=== PATIENT | female | born 1995 | race Two or more races ===

== ENCOUNTER → 2016-12-11 | Outpatient (CLI) | payer BC ==
[2016-12-11 16:35] LABS: Albumin 4.3 g/dL (3.4-5.0); BUN/Creatinine Ratio 16.1; Bilirubin, Total 0.4 mg/dL (0.2-1.0); Calcium 9.3 mg/dL (8.5-10.1); Potassium 3.6 mmol/L (3.5-5.1); Total Protein 8.5 g/dL (6.4-8.2)
[2016-12-11 16:42] LABS: Basophils # (auto) 0 uL; Basophils % (auto) 0.5 % (0.0-2.0); DEFINITIVE VIEW TRANSMISSION; Eosinophils # (auto) 0.1 uL; Eosinophils % (auto) 1.5 % (0.0-7.0); Hematocrit 39.9 % (36.0-46.0); Hemoglobin 13.3 g/dL (12.2-16.2); Lymphocytes # (auto) 2.1 uL; Lymphocytes % (auto) 29.9 % (10.0-50.0); Mean Corpuscular Hgb Conc. 33.4 g/dL (32.0-36.0); Mean Corpuscular Volume 77.9 fL (80.0-100.0); Mean Platelet Volume 9.4 fL (7.4-10.4); Monocytes # (auto) 0.4 uL; Monocytes % (auto) 5.9 % (0.0-12.0); Neutrophils # (auto) 4.5 uL; Neutrophils % (auto) 62.2 % (37.0-80.0); Platelet Count (auto) 293 10^3/uL (140-450); Red Cell Distribution Width 17.4 % (11.6-16.0); White Blood Cell 7.2 10^3/uL (4.4-10.8)
[2016-12-11 16:43] LABS: INR 0.98 (0.9-1.15); Partial Thromboplastin Time 25.6 sec (22.64-33.71); Prothrombin Time 10.7 sec (9.37-12.3)
== END | disposition home or self-care (01) ==
LOC: LAB 15:20
PROVIDERS: ATTEND Internal Medicine
DX: M79.1 Myalgia (principal); R53.83 Other fatigue; M79.81 Nontraumatic hematoma of soft tissue
CPT/HCPCS: 36415; 80053; 80061; 82306; 84443; 85025; 85610; 85652; 85730; 86141; 86225; 86235; 87070

== ENCOUNTER → 2016-12-20 | Outpatient (CLI) | payer BC ==
[2016-12-20 11:12] LABS: Temperature: 23.9 C (20.0-25.0)
== END | disposition home or self-care (01) ==
LOC: LAB 09:18
PROVIDERS: ATTEND Internal Medicine
DX: R53.83 Other fatigue (principal); M79.1 Myalgia; J02.9 Acute pharyngitis, unspecified
CPT/HCPCS: 82306; 82607; 82728; 82746; 86200; 86431

== ENCOUNTER → 2016-12-25 | Outpatient (CLI) | payer BC | END | disposition home or self-care (01) | LOC: LAB 13:40 | PROVIDERS: ATTEND Internal Medicine | DX: D64.9 Anemia, unspecified (principal) | CPT/HCPCS: 86880; 86885 ==

== ENCOUNTER → 2016-12-27 | Outpatient (CLI) | payer BC | END | disposition home or self-care (01) | LOC: LAB 10:01 | PROVIDERS: ATTEND Internal Medicine | DX: R53.83 Other fatigue (principal) | CPT/HCPCS: 86160 ==

== ENCOUNTER → 2017-09-02 | Outpatient (CLI) | payer BC ==
[2017-09-02 11:41] LABS: Basophils # (auto) 0 uL; Basophils % (auto) 0.7 % (0.0-2.0); Eosinophils # (auto) 0.1 uL; Eosinophils % (auto) 1.6 % (0.0-7.0); Hemoglobin 13.4 g/dL (12.2-16.2); Lymphocytes # (auto) 1.6 uL; Mean Corpuscular Hemoglobin 27.7 pg (28.0-32.0); Mean Corpuscular Hgb Conc. 32.7 g/dL (32.0-36.0); Mean Corpuscular Volume 84.9 fL (80.0-100.0); Monocytes # (auto) 0.4 uL; Monocytes % (auto) 6.6 % (0.0-12.0); Neutrophils # (auto) 3.4 uL; Neutrophils % (auto) 62.1 % (37.0-80.0); Platelet Count (auto) 234 10^3/uL (140-450); Red Blood Cells 4.83 10^6/uL (4.0-5.20); Red Cell Distribution Width 15.1 % (11.8-14.3); White Blood Cell 5.5 10^3/uL (4.4-10.8)
== END | disposition home or self-care (01) ==
LOC: LAB 11:22
PROVIDERS: ATTEND Internal Medicine
DX: M06.1 Adult-onset Still's disease (principal); R53.83 Other fatigue
CPT/HCPCS: 36415; 85025; 86431

== ENCOUNTER 2017-09-15 15:46 | Emergency (ER) | payer BC ==
[~2017-09-15] VITALS: Ht 167.6 cm; Wt 65.8 kg
[2017-09-15] MEDS ORDERED: SODIUM CHLORIDE 0.9% 1,000 ML IVB ONE (16:29)
[2017-09-15] MEDS ORDERED: MORPHINE SULFATE 4 MG/ML SYR/VIAL IV ONE (16:30)
[2017-09-15] MEDS ORDERED: ONDANSETRON HCL 4 MG/2 ML VIAL IV ONE (16:30)
[2017-09-15] MEDS ORDERED: IOHEXOL 300 MG/ML 100ML BOTTLE IJ ONE (17:08)
[2017-09-15 17:12] LABS: Urine Bacteria NONE SEEN /hpf (None Seen); Urine Blood Negative /uL (Negative); Urine Mucus FEW (None Seen); Urine Specific Gravity 1.019 (1.001-1.035); Urine WBC 2 /hpf (0 - 5)
[2017-09-15 17:21] LABS: Basophils # (auto) 0 uL; Basophils % (auto) 0.6 % (0.0-2.0); Eosinophils # (auto) 0.2 uL; Eosinophils % (auto) 3.4 % (0.0-7.0); Hematocrit 39.4 % (36.0-46.0); Hemoglobin 12.9 g/dL (12.2-16.2); Lymphocytes # (auto) 1.8 uL; Lymphocytes % (auto) 30.1 % (10.0-50.0); Mean Corpuscular Hemoglobin 28.1 pg (28.0-32.0); Mean Corpuscular Hgb Conc. 32.7 g/dL (32.0-36.0); Mean Corpuscular Volume 85.9 fL (80.0-100.0); Monocytes # (auto) 0.4 uL; Monocytes % (auto) 7.3 % (0.0-12.0); Neutrophils # (auto) 3.5 uL; Neutrophils % (auto) 58.6 % (37.0-80.0); Platelet Count (auto) 249 10^3/uL (140-450); Red Blood Cells 4.59 10^6/uL (4.0-5.20); Red Cell Distribution Width 14.7 % (11.8-14.3); White Blood Cell 5.9 10^3/uL (4.4-10.8)
[2017-09-15 17:37] LABS: Albumin 3.8 g/dL (3.4-5.0); BUN/Creatinine Ratio 14.9; Calcium 8.4 mg/dL (8.5-10.1); Potassium 3.7 mmol/L (3.5-5.1)
[2017-09-15 17:40] LABS: Bilirubin, Total 0.4 mg/dL (0.2-1.0); Total Protein 7.5 g/dL (6.4-8.2)
[2017-09-15] MEDS ORDERED: KETOROLAC TROMETH 30 MG/ML 1ML VIAL IV ONE (19:00)
[2017-09-15] MEDS ORDERED: SODIUM CHLORIDE 0.9% 1,000 ML IV ONE (19:45)
[2017-09-15 20:34] VITALS: BP 115/73
== END 2017-09-15 22:20 | disposition home or self-care (01) ==
LOC: ER 15:46
DX: R10.31 Right lower quadrant pain (principal)
CPT/HCPCS: 36415; 74177; 76856; 80053; 81001; 81025; 83690; 85025; 94761; 96361; 96374; 96375; 99285; J1885; J2270; J2405; J7030; Q9967

== ENCOUNTER → 2018-01-06 | Outpatient (CLI) | payer BC ==
[2018-01-06 11:49] LABS: Basophils # (auto) 0 uL; Basophils % (auto) 0.4 % (0.0-2.0); Eosinophils # (auto) 0.1 uL; Eosinophils % (auto) 2.6 % (0.0-7.0); Hematocrit 38.1 % (36.0-46.0); Hemoglobin 12.6 g/dL (12.2-16.2); Lymphocytes # (auto) 1.6 uL; Lymphocytes % (auto) 29.5 % (10.0-50.0); Mean Corpuscular Hgb Conc. 32.9 g/dL (32.0-36.0); Monocytes # (auto) 0.4 uL; Monocytes % (auto) 6.7 % (0.0-12.0); Neutrophils # (auto) 3.2 uL; Neutrophils % (auto) 60.8 % (37.0-80.0); Nucleated Red Blood Cells % 0.1 %; Platelet Count (auto) 255 10^3/uL (140-450); Red Blood Cells 4.49 10^6/uL (4.0-5.20); Red Cell Distribution Width 16.4 % (11.8-14.3); White Blood Cell 5.3 10^3/uL (4.4-10.8)
[2018-01-06 12:21] LABS: BUN/Creatinine Ratio 33.3; Bilirubin, Total 0.4 mg/dL (0.2-1.0); Calcium 8.7 mg/dL (8.5-10.1); Potassium 3.8 mmol/L (3.5-5.1); Total Protein 7.9 g/dL (6.4-8.2)
[2018-01-08 11:35] LABS: Ferritin 7.4 ng/mL (10-322)
== END | disposition home or self-care (01) ==
LOC: LAB 11:19
PROVIDERS: ATTEND Internal Medicine
DX: D50.0 Iron deficiency anemia secondary to blood loss (chronic) (principal)
CPT/HCPCS: 36415; 80053; 82306; 82607; 82728; 82746; 83540; 84443; 85025

== ENCOUNTER → 2018-02-24 | Outpatient (CLI) | payer BC ==
[2018-02-24 15:13] LABS: Basophils # (auto) 0 uL; Basophils % (auto) 0.4 % (0.0-2.0); Eosinophils # (auto) 0.1 uL; Hematocrit 40.9 % (36.0-46.0); Hemoglobin 13.5 g/dL (12.2-16.2); Lymphocytes # (auto) 1.2 uL; Lymphocytes % (auto) 22.4 % (10.0-50.0); Mean Corpuscular Hemoglobin 27.8 pg (28.0-32.0); Mean Corpuscular Hgb Conc. 32.9 g/dL (32.0-36.0); Mean Corpuscular Volume 84.6 fL (80.0-100.0); Monocytes # (auto) 0.4 uL; Monocytes % (auto) 6.8 % (0.0-12.0); Neutrophils # (auto) 3.6 uL; Neutrophils % (auto) 68.4 % (37.0-80.0); Nucleated Red Blood Cells % 0.1 %; Platelet Count (auto) 230 10^3/uL (140-450); Red Blood Cells 4.83 10^6/uL (4.0-5.20); Red Cell Distribution Width 15.5 % (11.8-14.3); White Blood Cell 5.3 10^3/uL (4.4-10.8)
[2018-02-24 15:40] LABS: Folate (Folic Acid) 8.27 ng/mL (5.38-24)
== END | disposition home or self-care (01) ==
LOC: LAB 14:30
PROVIDERS: ATTEND Internal Medicine
DX: D64.9 Anemia, unspecified (principal); B15.9 Hepatitis A without hepatic coma; E53.8 Deficiency of other specified B group vitamins; R53.83 Other fatigue; L65.9 Nonscarring hair loss, unspecified
CPT/HCPCS: 36415; 82607; 82746; 84436; 84443; 85025; 85652; 86141

== ENCOUNTER → 2018-03-27 | Outpatient (CLI) | payer BC | END | disposition home or self-care (01) | LOC: XYW 09:19 | PROVIDERS: ATTEND Internal Medicine | DX: I34.1 Nonrheumatic mitral (valve) prolapse (principal) | CPT/HCPCS: 93306 ==

== ENCOUNTER → 2018-04-07 | Outpatient (CLI) | payer BC | END | disposition home or self-care (01) | LOC: LAB 15:34 | PROVIDERS: ATTEND Internal Medicine | DX: D51.3 Other dietary vitamin B12 deficiency anemia (principal) | CPT/HCPCS: 82306; 82607 ==

== ENCOUNTER → 2018-10-12 | Outpatient (CLI) | payer BC ==
[2018-10-12 15:15] LABS: Basophils # (auto) 0 uL; Basophils % (auto) 0.5 % (0.0-2.0); Eosinophils # (auto) 0.1 uL; Eosinophils % (auto) 1.4 % (0.0-7.0); Hematocrit 43.4 % (36.0-46.0); Hemoglobin 14.4 g/dL (12.2-16.2); Lymphocytes # (auto) 1.6 uL; Lymphocytes % (auto) 38.9 % (10.0-50.0); Mean Corpuscular Hemoglobin 28.1 pg (28.0-32.0); Mean Corpuscular Hgb Conc. 33.1 g/dL (32.0-36.0); Mean Corpuscular Volume 85.1 fL (80.0-100.0); Monocytes # (auto) 0.3 uL; Monocytes % (auto) 6.3 % (0.0-12.0); Neutrophils # (auto) 2.2 uL; Neutrophils % (auto) 52.9 % (37.0-80.0); Nucleated Red Blood Cells % 0.2 %; Platelet Count (auto) 219 10^3/uL (140-450); Red Cell Distribution Width 15.3 % (11.8-14.3); White Blood Cell 4.1 10^3/uL (4.4-10.8)
[2018-10-12 15:20] LABS: Albumin 4.2 g/dL (3.4-5.0); Calcium 9.2 mg/dL (8.5-10.1); Potassium 3.7 mmol/L (3.5-5.1)
[2018-10-12 15:24] LABS: BUN/Creatinine Ratio 24.6; Bilirubin, Total 0.7 mg/dL (0.2-1.0); Total Protein 8.1 g/dL (6.4-8.2)
== END | disposition home or self-care (01) ==
LOC: LAB 14:01
PROVIDERS: ATTEND Internal Medicine
DX: E86.0 Dehydration (principal); R19.7 Diarrhea, unspecified; R51 Headache
CPT/HCPCS: 36415; 80053; 85025; 87086

== ENCOUNTER 2018-10-15 20:28 | Inpatient (IN) | payer BC ==
[~2018-10-15] VITALS: Ht 160 cm; Wt 62.6 kg
[2018-10-15] MEDS: SODIUM CHLORIDE 0.9% 1,000 ML IV SCH (00:15)
[2018-10-15] MEDS ORDERED: SODIUM CHLORIDE 0.9% 1,000 ML IVB ONE (20:39)
[2018-10-15 21:31] LABS: Basophils # (auto) 0 uL; Basophils % (auto) 0.3 % (0.0-2.0); Eosinophils # (auto) 0.1 uL; Eosinophils % (auto) 1.1 % (0.0-7.0); Hemoglobin 13.4 g/dL (12.2-16.2); Lymphocytes # (auto) 2.3 uL; Lymphocytes % (auto) 46.4 % (10.0-50.0); Mean Corpuscular Hemoglobin 27.7 pg (28.0-32.0); Mean Corpuscular Hgb Conc. 32.8 g/dL (32.0-36.0); Mean Corpuscular Volume 84.5 fL (80.0-100.0); Monocytes # (auto) 0.4 uL; Monocytes % (auto) 8.7 % (0.0-12.0); Neutrophils # (auto) 2.1 uL; Neutrophils % (auto) 43.5 % (37.0-80.0); Nucleated Red Blood Cells % 0.3 %; Platelet Count (auto) 200 10^3/uL (140-450); Red Blood Cells 4.85 10^6/uL (4.0-5.20); White Blood Cell 4.9 10^3/uL (4.4-10.8)
[2018-10-15 21:36] LABS: Alanine Aminotransferase 19 U/L (13-56); Albumin 4.3 g/dL (3.4-5.0); Anion Gap 10 (5-15); Blood Urea Nitrogen 13 mg/dL (7-18); Calcium 8.6 mg/dL (8.5-10.1); Carbon Dioxide 23 mmol/L (21-32); Chloride 109 mmol/L (98-107); Glucose 101 mg/dL (74-106); Magnesium 2.1 mg/dL (1.6-2.6); Sodium 142 mmol/L (136-145)
[2018-10-15] MEDS ORDERED: ONDANSETRON HCL 4 MG/2 ML VIAL ONE (21:36)
[2018-10-15 21:41] LABS: Alkaline Phosphatase 75 U/L (45-117); Aspartate Aminotransferase 12 U/L (15-37); BUN/Creatinine Ratio 18.6; Bilirubin, Total 0.4 mg/dL (0.2-1.0); GFR African American 131 mL/min; GFR Non-African American 108 mL/min; Total Protein 8.1 g/dL (6.4-8.2)
[2018-10-15 21:45] LABS: INR 1.03 (0.9-1.15); Partial Thromboplastin Time 26.2 sec (23.78-33.04)
[2018-10-15] MEDS ORDERED: MORPHINE SULF INJ 2 MG/ML SYRINGE 1ML IV ONE (21:45)
[2018-10-15] MEDS ORDERED: ONDANSETRON HCL 4 MG/2 ML VIAL IV ONE (21:45)
[2018-10-15] MEDS ORDERED: PROMETHAZINE HCL 25 MG/ML 1ML IV ONE (22:15)
[2018-10-15] MEDS ORDERED: LORazepam 2MG/ML-1ML VIAL ONE (22:28)
[2018-10-15] MEDS ORDERED: LORazepam 2MG/ML-1ML VIAL IV ONE (23:00)
[2018-10-16] VITALS (7 sets, daily range): BP systolic 101–123; BP diastolic 53–73
[2018-10-16 00:26] LABS: Lactic Acid w/Reflex 2.2 mmol/L (0.4-2.0)
[2018-10-16] MEDS ORDERED: HYDROcodone-ACET 5/325MG TAB PO PRN (00:45)
[2018-10-16] MEDS ORDERED: ONDANSETRON HCL 4 MG/2 ML VIAL IV PRN (00:45)
[2018-10-16] MEDS ORDERED: CEFTRIAXONE SODIUM 2 GM in D5W 5% 50 ML IV ONE (00:45)
[2018-10-16] MEDS ORDERED: SODIUM CHLORIDE 0.9% 500 ML IV ONE (00:45)
[2018-10-16] MEDS ORDERED: NITROGLYCERIN 0.4 MG SL TAB SL PRN (00:45)
[2018-10-16] MEDS ORDERED: PANTOPRAZOLE 40 MG/10 ML VIAL IV ONE (00:45)
[2018-10-16] MEDS ORDERED: LORazepam 2MG/ML-1ML VIAL IV PRN ×2 (00:45→11:30)
[2018-10-16] MEDS ORDERED: MORPHINE SULF INJ 2 MG/ML SYRINGE 1ML IV PRN (00:45)
[2018-10-16] MEDS ORDERED: LEVOFLOXACIN 750MG 150 ML IV ONE (01:30)
[2018-10-16] MEDS ORDERED: cefTRIAXone 1GM/50ML D5W 100 ML IV ONE (02:02)
[2018-10-16 02:03] LABS: Urine WBC None Seen /hpf (0 - 5)
[2018-10-16 02:13] LABS: Urine Amorphous Crystal FEW /hpf (None Seen); Urine Bacteria FEW /hpf (None Seen); Urine Blood Negative /uL (Negative); Urine Specific Gravity 1.013 (1.001-1.035)
[2018-10-16 02:28] LABS: Alcohol, Urine < 3.0 mg/dL (0-5); Amphetamine Screen, Urine NEGATIVE (NEGATIVE); Barbiturate Scree,Urine NEGATIVE (NEGATIVE); Benzodiazephine Screen, Urine NEGATIVE (NEGATIVE); Cannabinoid Screen, Urine POSITIVE (NEGATIVE); Cocaine Screen, Urine NEGATIVE (NEGATIVE); Opiate Scree,Urine NEGATIVE (NEGATIVE); Phencyclidine Screen, Urine NEGATIVE (NEGATIVE)
--- NOTE | 2018-10-16 02:35 | NUR ---
Telemetry admit from ER JOSE SALOMON admitted to Telemetry unit after report received. Patient unable to comprehend at this time . Family oriented to unit policies regarding patient care and visiting hours. Patient now on continuous telemetry monitoring, tele box # 2 and telemetry reading on arrival to unit is SR 80. Patient placed on bedside oxygen, weighed by bed scale and encouraged to call if they need something. All questions and concerns addressed, family verbalized understanding.
[2018-10-16] MEDS ORDERED: POTASSIUM CHL 20 Meq TABLET PO ONE (02:45)
[2018-10-16] MEDS ORDERED: POTASSIUM CHL 10% (20 MEQ/15ML) 15ml ORAL SOLN PO ONE ×2 (04:30→14:45)
--- NOTE | 2018-10-16 10:01 | NUR ---
Patient is ripping off tele monitor. Attempted to put it back but ripped it off again. Patient refusing to have tele monitor on. Informed [facility] staff.
[2018-10-16] MEDS: PANTOPRAZOLE 40 MG/10 ML VIAL IV SCH (10:37)
[2018-10-16] MEDS ORDERED: LORazepam 2MG/ML-1ML VIAL IV ONE (11:30)
--- NOTE | 2018-10-16 12:00 | NUR ---
Tele box returned to [facility].
--- NOTE | 2018-10-16 12:04 | NUR ---
Called MRI department, left a message regarding MRI and MRV that needs to be done today.
--- NOTE | 2018-10-16 13:00 | NUR ---
Cabrera catheter dc'd Order to discontinue cabrera catheter. Cabrera dc'd with clean technique following deflation of balloon. Patient tolerated well with no complaints of pain. Continue care.
[2018-10-16] MEDS: SODIUM CHLORIDE 0.9% 1,000 ML IV SCH ×2 (18:19→19:45)
--- NOTE | 2018-10-16 19:15 | NUR ---
Closing note Patient resting in bed, no signs of distress observed. Family at bedside.
--- NOTE | 2018-10-16 19:17 | NUR ---
OPENING SHIFT NOTE Received report from day shift RN. Dr Neumann at bedside discussing POC. Patient is in bed, alert and oriented X's 4 with family at bedside. Bed is in lowest/locked position with side rails up X's 2 and call light is within reach of patient. Educated patient to use call light when in need of assistance. Planning to discharge tonight. Will continue to monitor and round hourly/PRN.
--- NOTE | 2018-10-16 19:39 | NUR ---
HENRY AT BEDSIDE Dr Neumann at bedside discussing POC. Henry says patient is clear to be D/C tonight. Will continue to monitor and round hourly/PRN.
--- NOTE | 2018-10-16 20:17 | NUR ---
NURSING NOTE Educated patient and patient's mother that she will be discharged tomorrow when attending physician puts in orders. They verbalized understanding. Will continue to monitor and round hourly/PRN.
[2018-10-16] MEDS ORDERED: LEVOFLOXACIN 500MG 100 ML IV SCH (22:00)
[2018-10-17] MEDS: ACETAMINOPHEN 325 MG TAB PO PRN ×2 (02:56→10:03)
--- NOTE | 2018-10-17 03:00 | NUR ---
NEW IV INSERTED New 20G IV inserted to left forearm with one attempt using clean technique. Patient tolerated it well. 20G IV to right AC was removed with catheter fully intact. Gauze was applied to site.
--- NOTE | 2018-10-17 03:23 | NUR ---
NURSING NOTE Patient reported headache. Tylenol was given at this time. Patient also reported feeling nauseous and vomited about 30ml. Offered patient Zofran. Patient refused medication and said that she did not want it at this time. Gave patient some ice chips. Educated to use call light when in need of my assistance. Patient verbalized understanding. Will continue to monitor and round hourly/PRN.
[2018-10-17 05:05] VITALS: BP 105/62
[2018-10-17 05:38] LABS: Basophils # (auto) 0 uL; Basophils % (auto) 0.2 % (0.0-2.0); Eosinophils # (auto) 0 uL; Eosinophils % (auto) 0.2 % (0.0-7.0); Hematocrit 37.5 % (36.0-46.0); Hemoglobin 12.4 g/dL (12.2-16.2); Lymphocytes % (auto) 18.6 % (10.0-50.0); Mean Corpuscular Hemoglobin 28.1 pg (28.0-32.0); Mean Corpuscular Hgb Conc. 33.1 g/dL (32.0-36.0); Mean Corpuscular Volume 84.8 fL (80.0-100.0); Monocytes # (auto) 0.5 uL; Monocytes % (auto) 8.7 % (0.0-12.0); Neutrophils % (auto) 72.3 % (37.0-80.0); Nucleated Red Blood Cells % 0.1 %; Platelet Count (auto) 196 10^3/uL (140-450); Red Blood Cells 4.42 10^6/uL (4.0-5.20); Red Cell Distribution Width 15.4 % (11.8-14.3); White Blood Cell 5.6 10^3/uL (4.4-10.8)
[2018-10-17] MEDS: SODIUM CHLORIDE 0.9% 1,000 ML IV SCH (05:45)
[2018-10-17 05:57] LABS: Potassium 3.8 mmol/L (3.5-5.1)
[2018-10-17 06:04] LABS: Albumin 4.1 g/dL (3.4-5.0); BUN/Creatinine Ratio 17.7; Bilirubin, Total 0.5 mg/dL (0.2-1.0); Calcium 8.6 mg/dL (8.5-10.1); Total Protein 7.6 g/dL (6.4-8.2)
[2018-10-17 08:51] VITALS: BP 98/54
[2018-10-17] MEDS: PANTOPRAZOLE 40 MG/10 ML VIAL IV SCH (09:55)
[2018-10-17 12:24] VITALS: BP 109/66
--- NOTE | 2018-10-17 13:05 | NUR ---
Pt seen by Dr. Cruz Pt stated she want to go home, per Dr. Cruz pt can go home but instructed to go back to emergency room if symptoms does not improve, pt instructed to follow up with Dr. Neumann for out patient EEG. Mother at bedside and verbalized her daughter will go to her house after discharge.
[2018-10-17 14:26] VITALS: BP 98/54
--- NOTE | 2018-10-17 15:18 | NUR ---
Discharge instructions given as ordered. Encourage to follow up with DR. Ann [facility] IN [address] FIGUEROA IN 1-2 WEEKS, TEL# AND ADDRESS PROVIDED TO THE PT, UNABLE TO MAKE AN APPOINTMENT OFFICE IS CLOSE ON WEEKEND. All questions and concerns addressed. Patient verbalized understanding. Medication reconciliation form completed and copy given to patient. IV removed with catheter intact, pressure dressing applied. Patient taken to vehicle via wheelchair with all personal belongings, accompanied by staff and family member. No distress noted at time of departure.
== END 2018-10-17 15:18 | disposition home or self-care (01) | DRG 101 ==
LOC: EDBD 20:28 → ER 20:30 → TELE 10-16 00:38 → TELE-EAST 10-16 02:32 → EAST 10-16 11:40
PROVIDERS: ADMIT Nurse Practitioner; ATTEND Internal Medicine
DX: R56.9 Unspecified convulsions (principal); F05 Delirium due to known physiological condition; J98.11 Atelectasis; R51 Headache; Z83.3 Family history of diabetes mellitus; R19.7 Diarrhea, unspecified; R45.1 Restlessness and agitation; E87.6 Hypokalemia; F41.9 Anxiety disorder, unspecified; I34.1 Nonrheumatic mitral (valve) prolapse; Z80.51 Family history of malignant neoplasm of kidney; Z82.49 Family history of ischemic heart disease and other diseases of the circulatory system; Z82.5 Family history of asthma and other chronic lower respiratory diseases
CPT/HCPCS: 36415; 70450; 70545; 70551; 71045; 74176; 80053; 80307; 81001; 83605; 83735; 84484; 84702; 85025; 85610; 85730; 87040; 94761; 96361; 96365; 96375; C9113; G0378; J0696; J1956; J2405; J7060

== ENCOUNTER 2018-10-20 20:09 | Inpatient (IN) | payer BC ==
[~2018-10-20] VITALS: Ht 162.6 cm; Wt 65.0 kg
[2018-10-20 21:21] LABS: Basophils # (auto) 0 uL; Basophils % (auto) 0.3 % (0.0-2.0); Eosinophils # (auto) 0.1 uL; Eosinophils % (auto) 2.1 % (0.0-7.0); Hematocrit 42.3 % (36.0-46.0); Lymphocytes # (auto) 2.4 uL; Lymphocytes % (auto) 43.3 % (10.0-50.0); Mean Corpuscular Hemoglobin 28.1 pg (28.0-32.0); Mean Corpuscular Hgb Conc. 33.1 g/dL (32.0-36.0); Mean Corpuscular Volume 84.9 fL (80.0-100.0); Monocytes # (auto) 0.4 uL; Monocytes % (auto) 7.2 % (0.0-12.0); Neutrophils # (auto) 2.6 uL; Neutrophils % (auto) 47.1 % (37.0-80.0); Nucleated Red Blood Cells % 0.1 %; Platelet Count (auto) 250 10^3/uL (140-450); Red Blood Cells 4.98 10^6/uL (4.0-5.20); Red Cell Distribution Width 15.4 % (11.8-14.3); White Blood Cell 5.6 10^3/uL (4.4-10.8)
[2018-10-20] MEDS ORDERED: IOHEXOL 350 MG/ML 100ML IJ ONE (21:25)
[2018-10-20 21:28] LABS: Potassium 3.4 mmol/L (3.5-5.1)
[2018-10-20 21:30] LABS: Albumin 4.1 g/dL (3.4-5.0); Calcium 8.9 mg/dL (8.5-10.1); Magnesium 2.2 mg/dL (1.6-2.6)
[2018-10-20 21:33] LABS: BUN/Creatinine Ratio 18.6
[2018-10-20 21:36] LABS: Bilirubin, Total 0.3 mg/dL (0.2-1.0)
[2018-10-20] MEDS ORDERED: ACETAMINOPHEN 500 MG TAB PO ONE (22:45)
[2018-10-20 23:20] LABS: Urine Bacteria NONE SEEN /hpf (None Seen); Urine Blood Negative /uL (Negative); Urine Specific Gravity 1.048 (1.001-1.035); Urine WBC <1 /hpf (0 - 5)
[2018-10-20 23:30] LABS: Alcohol, Urine < 3.0 mg/dL (0-5); Amphetamine Screen, Urine NEGATIVE (NEGATIVE); Barbiturate Scree,Urine NEGATIVE (NEGATIVE); Benzodiazephine Screen, Urine NEGATIVE (NEGATIVE); Cannabinoid Screen, Urine NEGATIVE (NEGATIVE); Cocaine Screen, Urine NEGATIVE (NEGATIVE); Opiate Scree,Urine NEGATIVE (NEGATIVE); Phencyclidine Screen, Urine NEGATIVE (NEGATIVE)
[2018-10-20] MEDS ORDERED: LORazepam 2MG/ML-1ML VIAL IV ONE (23:45)
[2018-10-21] VITALS (7 sets, daily range): BP systolic 98–152; BP diastolic 60–72
[2018-10-21] MEDS ORDERED: HYDROmorphone HCL 2 MG/ML VL IV ONE (00:15)
[2018-10-21] MEDS ORDERED: ONDANSETRON HCL 4 MG/2 ML VIAL IV PRN (00:45)
[2018-10-21] MEDS ORDERED: POTASSIUM CHL 20 Meq TABLET PO ONE (00:45)
[2018-10-21] MEDS ORDERED: ACETAMINOPHEN 325 MG TAB PO PRN (00:45)
[2018-10-21] MEDS ORDERED: SUMAtriptan SUCCINATE 25 MG TAB PO PRN (01:15)
--- NOTE | 2018-10-21 01:43 | NUR ---
MS admit from ER AIME,JOSE admitted to tele/MS. Patient oriented to KALYAN MIRELES, RN primary RN, unit, room, bed, and unit policies regarding patient care and visiting hours. Patient weighed by bedscale and encouraged to call if they need something. All questions and concerns addressed, patient verbalized understanding. Safety maintained with bed rails upx2, locked and in lowest position with call don within reach. Family at bedside.
--- NOTE | 2018-10-21 07:03 | NUR ---
Closing Shift Note Patient resting in bed, no s/s distress. Endorsed care to day shift RN Danielle.
--- NOTE | 2018-10-21 08:00 | NUR ---
Opening Shift Note Assumed care of patient, asleep but easily woken up by name and tactile touch. Patient appears to be very fatigued. Oriented X4. No S/S of distress/SOB or pain. IV to left antecubital, 20 gauge, patent and saline locked. Mother at bedside, instructed on POC and to call for assist PRN, verbalized understanding. Bed locked, in lowest position, call light within reach, seizure precautions in place, will continue to monitor for changes Q1hr and PRN.
[2018-10-21] MEDS ORDERED: LORazepam 2MG/ML-1ML VIAL IV ONE (11:30)
[2018-10-21] MEDS: FAMOTIDINE 20 MG TAB PO SCH ×2 (11:35→21:43)
--- NOTE | 2018-10-21 11:44 | NUR ---
Nutrition Assessment/consult Notes please see attached link for complete assessment Est. Needs BW [id number] kcal (25-30 kcal/kgBW), 58-69 gms pro (1.0-1.2 gm/kgBW). Will continue to monitor pertinent labs and reassess nutrient need prn. Addendum: 10/21/18 at [address] Amended: Links added.
--- NOTE | 2018-10-21 11:47 | NUR ---
ROUNDS Dr Meyers at bedside for rounds, new orders received and followed through. Patient and family at bedside updated on plan of care, verbalized understanding.
[2018-10-21] MEDS: KETOROLAC TROMETH 30 MG/ML 1ML VIAL IV PRN ×2 (12:43→21:43)
--- NOTE | 2018-10-21 19:18 | NUR ---
Care endorsed to TAVARES Aguilar, night nurse.
--- NOTE | 2018-10-21 22:14 | NUR ---
Opening Shift Note Assumed care of patient from day shift RN Danielle. Patient is awake and alert with no S/S of distress. Pain 3/10 at this time. Patient requests pain medication after shower. Family is at bedside. Instructed on POC and to call for assist PRN, will continue to monitor for changes Q1hr and PRN.
[2018-10-22] MEDS ORDERED: NALBUPHINE HCL 10 MG/1ml INJECTION ONE (05:09)
[2018-10-22 06:00] VITALS: BP 116/69
--- NOTE | 2018-10-22 06:00 | NUR ---
SPOKE WITH SADIA PATIENT CRYING IN PAIN. NO RELIEVE FOR KETOROLAC. NEW ORDER FOR NUBAIN 10 MG IV ONCE. Addendum: 10/22/18 at 0602 by DREW DANIEL RN RN WRONG TIME. RIGHT TIME 0841
[2018-10-22 06:18] LABS: Basophils # (auto) 0 uL; Basophils % (auto) 0.4 % (0.0-2.0); Eosinophils # (auto) 0.1 uL; Eosinophils % (auto) 2.4 % (0.0-7.0); Hematocrit 39.5 % (36.0-46.0); Lymphocytes # (auto) 2.5 uL; Lymphocytes % (auto) 50.6 % (10.0-50.0); Mean Corpuscular Hemoglobin 27.9 pg (28.0-32.0); Mean Corpuscular Volume 84.5 fL (80.0-100.0); Monocytes # (auto) 0.4 uL; Monocytes % (auto) 8.1 % (0.0-12.0); Neutrophils # (auto) 1.9 uL; Neutrophils % (auto) 38.5 % (37.0-80.0); Nucleated Red Blood Cells % 0.1 %; Platelet Count (auto) 238 10^3/uL (140-450); Red Blood Cells 4.67 10^6/uL (4.0-5.20); Red Cell Distribution Width 15.4 % (11.8-14.3); White Blood Cell 4.9 10^3/uL (4.4-10.8)
[2018-10-22 06:22] LABS: BUN/Creatinine Ratio 22.6; Calcium 8.6 mg/dL (8.5-10.1); Potassium 3.9 mmol/L (3.5-5.1)
--- NOTE | 2018-10-22 07:20 | NUR ---
Closing Shift Note Patient resting in bed, with even and unlabored respirations. She denies pain at this time. Bed is low, locked, and all light is in reach. Endorsed care to day shift TAVARES Santos.
[2018-10-22 08:00] VITALS: BP 99/59
--- NOTE | 2018-10-22 08:00 | NUR ---
Opening Shift Note Assumed care of patient, awake, alert and oriented X4. No S/S of distress/SOB or pain. Patient appears to be very fatigued but easily arousable. IV to left antecubital, 20 gauge, patent and saline locked. Instructed on POC and to call for assist PRN, verbalized understanding. Bed locked, in lowest position, call light within reach, will continue to monitor for changes Q1hr and PRN.
[2018-10-22] MEDS: FAMOTIDINE 20 MG TAB PO SCH ×2 (10:00→20:05)
--- NOTE | 2018-10-22 11:30 | NUR ---
ROUNDS Dr Meyers at bedside for rounds, plan of care discussed with patient and her mom at bedside, verbalized understanding.
[2018-10-22 12:30] VITALS: BP 96/49
[2018-10-22 16:57] VITALS: BP 98/57
[2018-10-22] MEDS: KETOROLAC TROMETH 30 MG/ML 1ML VIAL IV PRN ×2 (17:02→23:28)
--- NOTE | 2018-10-22 18:26 | NUR ---
NEUROLOGY Dr Neumann at bedside for rounds, plan discussed with patient and mother at bedside, verbalized understanding.
--- NOTE | 2018-10-22 19:05 | NUR ---
OPENING NOTE Received report from day shift RN. Patient is A&O X's 4 with no s/s of respiratory distress noted. Patient is crying and restless at this time d/t severe headache. Paged hospitalist at this time for pain medication. Waiting call back. Patient's mom is at bedside. Educated patient and patient's mom on POC and to use call light when in need of assistance. They verbalized understanding. Bed is in lowest/locked position with side rails up X's 2. Call light is within reach of patient. Will continue to monitor and round hourly/PRN.
[2018-10-22] MEDS ORDERED: DexAMETHasone INJECTION 10 MG in D5W 5% 50 ML IV SCH (19:28)
--- NOTE | 2018-10-22 19:33 | NUR ---
Care endorsed to TAVARES Barrios, night nurse.
[2018-10-22] MEDS: METOCLOPRAMIDE HCL 10 MG TAB PO SCH (20:05)
[2018-10-22] MEDS: SODIUM CHLORIDE 0.9% 1,000 ML IV SCH (20:07)
[2018-10-22 22:00] VITALS: BP 113/67
[2018-10-22] MEDS ORDERED: HYDROcodone-ACET 10/325MG TAB PO ONE (22:45)
[2018-10-23] MEDS: SODIUM CHLORIDE 0.9% 1,000 ML IV SCH (05:31)
[2018-10-23 05:32] VITALS: BP 112/53
[2018-10-23] MEDS: METOCLOPRAMIDE HCL 10 MG TAB PO SCH (06:00)
--- NOTE | 2018-10-23 07:45 | NUR ---
Opening Shift Note Assumed care of patient, awake and alert. No S/S of distress/SOB or pain. Instructed on POC and to call for assist PRN, will continue to monitor for changes Q1hr and PRN.
[2018-10-23 08:00] VITALS: BP 103/67
--- NOTE | 2018-10-23 08:10 | NUR ---
Family members at bedside.
[2018-10-23 11:59] VITALS: BP 103/67
--- NOTE | 2018-10-23 12:40 | NUR ---
Discharge instructions given as ordered. Encourage to follow up with PMD as instructed. All questions and concerns addressed. Patient verbalized understanding. Medication reconciliation form completed and copy given to patient. IV removed with catheter intact and pressure dressing applied. Patient taken to vehicle via wheelchair with all personal belongings, accompanied by staff and family member. No distress noted at time of departure.
== END 2018-10-23 12:40 | disposition home or self-care (01) | DRG 103 ==
LOC: ER 20:11 → EEVIPCON 20:11 → OVERFLOW 10-21 00:35 → EAST 10-21 01:45
PROVIDERS: ADMIT Nurse Practitioner; ATTEND Internal Medicine
DX: G43.909 Migraine, unspecified, not intractable, without status migrainosus (principal); R47.81 Slurred speech; E87.6 Hypokalemia; G40.909 Epilepsy, unspecified, not intractable, without status epilepticus; Z80.51 Family history of malignant neoplasm of kidney; Z82.49 Family history of ischemic heart disease and other diseases of the circulatory system; Z82.5 Family history of asthma and other chronic lower respiratory diseases; Z83.3 Family history of diabetes mellitus
CPT/HCPCS: 36415; 70470; 70551; 72125; 80048; 80053; 80307; 81001; 83605; 83735; 84702; 85025; 87081; G0378; J1100; J1885; J2405; J7060

== ENCOUNTER 2018-11-18 09:51 | Inpatient (IN) | payer BC ==
[~2018-11-18] VITALS: Ht 162.6 cm; Wt 60.0 kg
--- NOTE | 2018-11-18 10:30 | NUR ---
MS direct admit JOSE SALOMON admitted to MS as direct admit under Dr Meyers. Patient oriented to АННА RIVAS, primary RN, unit, room, bed, and unit policies regarding patient care and visiting hours. Patient weighed by bedscale and encouraged to call if they need something. All questions and concerns addressed, patient verbalized understanding. Note:
[2018-11-18] MEDS ORDERED: KETOROLAC TROMETH 30 MG/ML 1ML VIAL IV PRN (11:30)
[2018-11-18] MEDS ORDERED: ONDANSETRON HCL 4 MG/2 ML VIAL IV PRN (11:30)
--- NOTE | 2018-11-18 11:30 | NUR ---
MD: Dr Meyers at bedside. Per , Dr Delaney is schedule to take patient to surgery at 0730 on 11/19/18.
[2018-11-18 12:00] VITALS: BP 112/79
[2018-11-18] MEDS: D5W/SOD CHL 0.45%/KCL 20MEQ 1,000 ML IV SCH ×2 (12:36→23:55)
[2018-11-18 12:52] LABS: Basophils # (auto) 0 uL; Basophils % (auto) 0.4 % (0.0-2.0); Eosinophils # (auto) 0.1 uL; Eosinophils % (auto) 1.6 % (0.0-7.0); Hematocrit 36.3 % (36.0-46.0); Hemoglobin 12.1 g/dL (12.2-16.2); Lymphocytes # (auto) 1.7 uL; Lymphocytes % (auto) 31.9 % (10.0-50.0); Mean Corpuscular Hemoglobin 27.9 pg (28.0-32.0); Mean Corpuscular Hgb Conc. 33.2 g/dL (32.0-36.0); Mean Corpuscular Volume 84.1 fL (80.0-100.0); Monocytes # (auto) 0.4 uL; Monocytes % (auto) 7.3 % (0.0-12.0); Neutrophils # (auto) 3.2 uL; Neutrophils % (auto) 58.8 % (37.0-80.0); Nucleated Red Blood Cells % 0.1 %; Platelet Count (auto) 267 10^3/uL (140-450); Red Blood Cells 4.32 10^6/uL (4.0-5.20); Red Cell Distribution Width 14.8 % (11.8-14.3); White Blood Cell 5.5 10^3/uL (4.4-10.8)
[2018-11-18 12:55] LABS: Prothrombin Time 10.7 sec (9.27-12.13)
[2018-11-18 13:10] LABS: Potassium 3.7 mmol/L (3.5-5.1)
[2018-11-18 13:15] LABS: Albumin 3.7 g/dL (3.4-5.0); BUN/Creatinine Ratio 16.1
[2018-11-18 13:16] LABS: Bilirubin, Total 0.3 mg/dL (0.2-1.0); Total Protein 7.5 g/dL (6.4-8.2)
[2018-11-18 16:34] LABS: Urine Bacteria FEW /hpf (None Seen); Urine Blood Negative /uL (Negative); Urine Specific Gravity 1.007 (1.001-1.035); Urine WBC 12 /hpf (0 - 5)
--- NOTE | 2018-11-18 19:23 | NUR ---
CLOSING SHIFT NOTE: Report given to NOC Marcus CHAPIN. Endorsed care of patient.
--- NOTE | 2018-11-18 20:00 | NUR ---
OPENING NOTE RECEIVED REPORT FROM DAYSHIFT RN. ASSUMING ROLE OF CARE OF PATIENT AT THIS TIME. PATIENT SHOWING NO SIGN OF DISTRESS, SHORTNESS OF BREATH, AND PATIENT DENIES ANY PAIN AT THIS TIME. PATIENT EDUCATED ON PLAN OF CARE FOR THE NIGHT AND PATIENT VERBALIZED UNDERSTANDING. BED LOWERED, CALL LIGHT WITHIN REACH, AND PATIENT WILL BE ROUNDED ON EVERY HOUR AND NEEDED.
--- NOTE | 2018-11-18 21:40 | NUR ---
MD CORNEJO AT BEDSIDE
--- NOTE | 2018-11-18 21:48 | NUR ---
MD [facility] CONTACTED MD [facility] LISTED PRIMARY PHYSICIAN. OFFICE WAS CONTACTED TO REQUEST SLEEPING MEDICATION OR ANXIETY MEDICATION FOR PATIENT PATIENT IS HAVING SLIGHT ANXIETY AND CANNOT SEEM TO FALL ASLEEP. WILL AWAIT CALL BACKS OR ORDERS.
[2018-11-18 22:00] VITALS: BP 113/63
--- NOTE | 2018-11-18 22:17 | NUR ---
MD [facility] CALLED BACK STATED THAT THEY ARE NOT FOLLOWING THE PATIENT AT THIS TIME AND TO CALL HOSPITALIST. WILL CONTACT HOSPITALIST FOR ORDERS.
--- NOTE | 2018-11-18 22:28 | NUR ---
MD CORNEJO CALLED MD CORNEJO REQUESTED TO HAVE THE GALLBLADDER US PLACED IN THE CHART PRIOR TO PROCEDURE. UNABLE TO OBTAIN REPORT TEST WAS NOT DONE AT THE HOSPITAL. REQUESTED IF POSSIBLE FROM RADIOLOGY AND THEY WERE UNABLE. CONTACTED DR CORNEJO TO SEE IF THEY WOULD LIKE TO PLACE ORDERS TO HAVE A NEW GALLBLADDER US TO BE DONE TONIGHT. WILL AWAIT CALL BACK OR ORDERS.
[2018-11-18] MEDS ORDERED: TEMAZEPAM 15 MG CAP PO ONE (22:45)
--- NOTE | 2018-11-18 23:53 | NUR ---
GALLBLADDER US DONE US DONE AT BEDSIDE. PATIENT TOLERATED WELL. PATIENT SIGNED CONSENTS AT THIS TIME WELL. PATIENT REFUSED SLEEPING PILL AT THIS TIME WELL AND STATED THAT THEY "DO NOT WANT TO BE GROGGY IN THE MORNING". PILL RETURNED. WILL CONTINUE TO MONITOR.
[2018-11-19 05:21] VITALS: BP 111/63
--- NOTE | 2018-11-19 06:36 | NUR ---
PATIENT TAKEN DOWN TO PREOP RECEIVED CALL FROM ROMEL TO TAKE PATIENT DOWN FOR PREOP. PATIENT'S BELONGINGS LEFT IN ROOM AND PATIENT TAKEN DOWN TO PREOP.
[2018-11-19] MEDS ORDERED: ceFAZolin 1GM/50ML 50 ML IV ONE (06:47)
[2018-11-19] MEDS ORDERED: MEPERIDINE HCL (25 MG/ML) 1ML VIAL ONE (07:47)
[2018-11-19] MEDS ORDERED: fentaNYL CITRATE 100 MCG/2 ML VL ONE (07:47)
[2018-11-19] MEDS ORDERED: MIDAZOLAM HCL 1MG/1ML-2 ML VIAL ONE (07:47)
[2018-11-19] MEDS ORDERED: PROPOFOL 10 MG/ML 20 ML IV ONE (07:51)
[2018-11-19] MEDS ORDERED: DexAMETHasone SOD PHOS 10MG/1ML VIAL INJ ONE (07:51)
[2018-11-19] MEDS ORDERED: ONDANSETRON HCL 4 MG/2 ML VIAL ONE (08:04)
[2018-11-19] MEDS ORDERED: BUPIVACAINE 0.25% INJ 50ML VIAL ONE (08:12)
[2018-11-19] MEDS ORDERED: LIDOCAINE W/ EPINEPHRINE 1 % INJ 30ML ONE (08:12)
[2018-11-19] MEDS ORDERED: LIDOCAINE 1% HCL (LOCAL ANESTH.) INJ 20ML MDV ONE (08:15)
[2018-11-19] MEDS ORDERED: KETOROLAC TROMETH 30 MG/ML 1ML VIAL ONE (08:45)
[2018-11-19] MEDS ORDERED: NEOSTIGMINE 1 MG/ML INJ (10mg/10ML VIAL) ONE (08:46)
[2018-11-19] MEDS ORDERED: GLYCOPYRROLATE 0.2 MG/ML 1ML VIAL ONE (08:46)
[2018-11-19] MEDS: HYDROmorphone HCL 2 MG/ML VL IV PRN ×7 (09:27→21:34)
[2018-11-19] MEDS ORDERED: HYDROmorphone HCL 2 MG/ML VL ONE (09:27)
[2018-11-19] MEDS ORDERED: ONDANSETRON HCL 4 MG/2 ML VIAL IV ONE (09:30)
[2018-11-19] MEDS ORDERED: KETOROLAC TROMETH 30 MG/ML 1ML VIAL IV ONE (09:30)
[2018-11-19] MEDS ORDERED: MIDAZOLAM HCL 1MG/1ML-2 ML VIAL IV PRN (09:30)
[2018-11-19] MEDS ORDERED: ePHEDrine SULFATE 50 MG/ML AMP IV PRN (09:30)
[2018-11-19] MEDS ORDERED: LABETALOL HCL 5 MG/ML 4ML SYRINGE IV PRN (09:30)
[2018-11-19] MEDS ORDERED: PANTOPRAZOLE 40 MG TAB PO SCH (10:00)
[2018-11-19 10:30] VITALS: BP 117/73
--- NOTE | 2018-11-19 10:30 | NUR ---
pt back from surgery, a/o x4, no s/s of distress noted, v/s wnl, abdominal incision x4 clean dry and intact, family at bedside, call light within reach, asked to call if needed, will continue to monitor.
--- NOTE | 2018-11-19 11:11 | NUR ---
Dr Meyers at nurses station and made aware pt is requesting Benadryl.
--- NOTE | 2018-11-19 11:29 | NUR ---
Patient refused Protonix requesting Mylanta instead, will continue to monitor and inform Dr Meyers.
--- NOTE | 2018-11-19 11:45 | NUR ---
Dr Meyers at bedside. Per Dr Meyers will review patient's medications and update. Will continue to monitor. Patient A&OX4, abdominal binder placed. No s/s of distress noted and will continue to monitor.
[2018-11-19] MEDS ORDERED: FAMOTIDINE (10MG/ML) 2ML VL IV ONE (12:00)
[2018-11-19] MEDS ORDERED: diphenhdrAMINE HCL 50 MG/1 ML VL IV PRN (12:00)
[2018-11-19] MEDS: PROMETHAZINE HCL 25 MG/ML 1ML IV PRN ×2 (12:41→18:43)
[2018-11-19 13:29] VITALS: BP 111/69
[2018-11-19] MEDS: D5W/SOD CHL 0.45%/KCL 20MEQ 1,000 ML IV SCH (16:13)
[2018-11-19 17:24] VITALS: BP 114/62
--- NOTE | 2018-11-19 18:54 | NUR ---
Patient care and report handed off to Marcus CHAPIN.
[2018-11-19] MEDS: KETOROLAC TROMETH 30 MG/ML 1ML VIAL IV PRN (19:54)
--- NOTE | 2018-11-19 20:00 | NUR ---
OPENING NOTE RECEIVED REPORT FROM DAYSHIFT RN. ASSUMING ROLE OF CARE OF PATIENT AT THIS TIME. PATIENT SHOWING NO SIGN OF DISTRESS, SHORTNESS OF BREATH, AND PATIENT STATES PAIN IS 10/10 FROM ABDOMEN. PATIENT WILL BE MEDICATED PER PAIN PROTOCOL AVAILABLE. INCISIONS ARE CLEAN DRY AND INTACT. PATIENT EDUCATED ON PLAN OF CARE FOR THE NIGHT AND PATIENT VERBALIZED UNDERSTANDING. BED LOWERED, CALL LIGHT WITHIN REACH, AND PATIENT WILL BE ROUNDED ON EVERY HOUR AND NEEDED.
[2018-11-19] MEDS: FAMOTIDINE (10MG/ML) 2ML VL IV SCH (21:34)
[2018-11-19 22:00] VITALS: BP 104/55
[2018-11-20] MEDS: HYDROmorphone HCL 2 MG/ML VL IV PRN ×4 (01:56→20:17)
[2018-11-20] MEDS: D5W/SOD CHL 0.45%/KCL 20MEQ 1,000 ML IV SCH ×2 (03:30→20:28)
[2018-11-20 05:44] VITALS: BP 102/56
[2018-11-20 06:56] LABS: Basophils # (auto) 0.1 uL; Basophils % (auto) 1.5 % (0.0-2.0); Eosinophils # (auto) 0 uL; Eosinophils % (auto) 0.3 % (0.0-7.0); Hematocrit 36.4 % (36.0-46.0); Lymphocytes # (auto) 2.1 uL; Lymphocytes % (auto) 25.7 % (10.0-50.0); Mean Corpuscular Hemoglobin 27.6 pg (28.0-32.0); Mean Corpuscular Volume 83.7 fL (80.0-100.0); Monocytes # (auto) 0.6 uL; Monocytes % (auto) 7.7 % (0.0-12.0); Neutrophils # (auto) 5.3 uL; Neutrophils % (auto) 64.8 % (37.0-80.0); Nucleated Red Blood Cells % 0.1 %; Platelet Count (auto) 284 10^3/uL (140-450); Red Blood Cells 4.34 10^6/uL (4.0-5.20); Red Cell Distribution Width 14.6 % (11.8-14.3); White Blood Cell 8.1 10^3/uL (4.4-10.8)
[2018-11-20 07:12] LABS: Albumin 3.6 g/dL (3.4-5.0); Potassium 3.8 mmol/L (3.5-5.1)
[2018-11-20 07:14] LABS: BUN/Creatinine Ratio 9.5
[2018-11-20 07:17] LABS: Bilirubin, Total 0.5 mg/dL (0.2-1.0); Total Protein 7.2 g/dL (6.4-8.2)
[2018-11-20] MEDS: PROMETHAZINE HCL 25 MG/ML 1ML IV PRN ×3 (07:34→20:17)
[2018-11-20 07:45] VITALS: BP 107/65
[2018-11-20] MEDS ORDERED: ROCURONIUM 10MG/ML 10ML VIAL IV ONE (08:10)
[2018-11-20] MEDS: FAMOTIDINE (10MG/ML) 2ML VL IV SCH ×2 (09:30→21:29)
[2018-11-20 11:55] VITALS: BP 123/78
[2018-11-20 16:27] VITALS: BP 99/49
[2018-11-20] MEDS: KETOROLAC TROMETH 30 MG/ML 1ML VIAL IV PRN (21:35)
[2018-11-20 22:49] VITALS: BP 110/65
[2018-11-21] MEDS: HYDROmorphone HCL 2 MG/ML VL IV PRN ×2 (03:48→09:53)
[2018-11-21] MEDS: PROMETHAZINE HCL 25 MG/ML 1ML IV PRN ×2 (03:49→09:54)
--- NOTE | 2018-11-21 04:25 | NUR ---
PICC DRESSING CHANGE PATIENT C/O OF BLISTER FORMING UNDER PICC DRESSING, FLUID FILLED BLISTERS NOTICED ON THE OUTER EDGE ON THE DRESSING. CHANGED PICC DRESSING USING ASEPTIC TECHNIQUE. TEGADERM USED THE COVER TO PREVENT SKIN IRRITATION. WILL KEEP MONITORING.
[2018-11-21 04:49] VITALS: BP 97/57
[2018-11-21 05:43] LABS: Basophils # (auto) 0 uL; Basophils % (auto) 0.5 % (0.0-2.0); Eosinophils # (auto) 0 uL; Eosinophils % (auto) 1.3 % (0.0-7.0); Hematocrit 32.5 % (36.0-46.0); Hemoglobin 10.7 g/dL (12.2-16.2); Lymphocytes # (auto) 1.8 uL; Lymphocytes % (auto) 50.7 % (10.0-50.0); Mean Corpuscular Hemoglobin 27.6 pg (28.0-32.0); Mean Corpuscular Hgb Conc. 32.8 g/dL (32.0-36.0); Monocytes # (auto) 0.3 uL; Monocytes % (auto) 9.9 % (0.0-12.0); Neutrophils # (auto) 1.3 uL; Neutrophils % (auto) 37.6 % (37.0-80.0); Platelet Count (auto) 211 10^3/uL (140-450); Red Blood Cells 3.87 10^6/uL (4.0-5.20); Red Cell Distribution Width 15.1 % (11.8-14.3); White Blood Cell 3.5 10^3/uL (4.4-10.8)
[2018-11-21 06:01] LABS: Albumin 3.1 g/dL (3.4-5.0); BUN/Creatinine Ratio 13.6; Calcium 8.2 mg/dL (8.5-10.1); Potassium 3.8 mmol/L (3.5-5.1)
[2018-11-21 06:04] LABS: Bilirubin, Total 0.3 mg/dL (0.2-1.0); Total Protein 6.2 g/dL (6.4-8.2)
[2018-11-21] MEDS: D5W/SOD CHL 0.45%/KCL 20MEQ 1,000 ML IV SCH (06:10)
[2018-11-21 08:38] VITALS: BP 97/62
[2018-11-21] MEDS: FAMOTIDINE (10MG/ML) 2ML VL IV SCH (09:54)
[2018-11-21 13:10] VITALS: BP 106/66
== END 2018-11-21 14:30 | disposition home or self-care (01) | DRG 419 ==
LOC: EAST 10:06
PROVIDERS: ADMIT Internal Medicine; ATTEND Internal Medicine
PROC: 0FT44ZZ Resection of Gallbladder, Percutaneous Endoscopic Approach (ICD-10-PCS; 2018-11-19)
PROC: BF43ZZZ Ultrasonography of Gallbladder and Bile Ducts (ICD-10-PCS; principal; 2018-11-19 07:39)
DX: K80.12 Calculus of gallbladder with acute and chronic cholecystitis without obstruction (principal); K66.0 Peritoneal adhesions (postprocedural) (postinfection); Z86.61 Personal history of infections of the central nervous system; Z88.5 Allergy status to narcotic agent; Z88.6 Allergy status to analgesic agent; Z91.018 Allergy to other foods
CPT/HCPCS: 36415; 71045; 76705; 80053; 81001; 83690; 84702; 85025; 85610; 85730; 86850; 86900; 86901; 87081; G0378; J0690; J1100; J1885; J2001; J2250; J2405; J2704; J3490

== ENCOUNTER → 2018-12-02 | Outpatient (CLI) | payer BC | END | disposition home or self-care (01) | LOC: LAB 15:09 | PROVIDERS: ATTEND Internal Medicine | DX: D51.3 Other dietary vitamin B12 deficiency anemia (principal) | CPT/HCPCS: 82607 ==

== ENCOUNTER → 2018-12-29 | Outpatient (CLI) | payer BC ==
[2018-12-29 16:17] LABS: Albumin 4.2 g/dL (3.4-5.0); Calcium 9.1 mg/dL (8.5-10.1); Potassium 3.5 mmol/L (3.5-5.1)
[2018-12-29 16:19] LABS: BUN/Creatinine Ratio 20.3
[2018-12-29 16:21] LABS: Bilirubin, Total 0.4 mg/dL (0.2-1.0)
[2018-12-29 16:46] LABS: Basophils # (auto) 0 uL; Eosinophils # (auto) 0.1 uL; Hemoglobin 12.3 g/dL (12.2-16.2); Lymphocytes # (auto) 1.7 uL; Lymphocytes % (auto) 35.9 % (10.0-50.0); Monocytes # (auto) 0.3 uL; Neutrophils # (auto) 2.6 uL; Nucleated Red Blood Cells % 0.2 %
[2018-12-29 16:48] LABS: Basophils % (auto) 0.6 % (0.0-2.0); Eosinophils % (auto) 1.6 % (0.0-7.0); Mean Corpuscular Hemoglobin 26.6 pg (28.0-32.0); Mean Corpuscular Hgb Conc. 32.4 g/dL (32.0-36.0); Monocytes % (auto) 5.9 % (0.0-12.0); Platelet Count (auto) 279 10^3/uL (140-450); Red Blood Cells 4.64 10^6/uL (4.0-5.20); Red Cell Distribution Width 14.6 % (11.8-14.3); White Blood Cell 4.6 10^3/uL (4.4-10.8)
== END | disposition home or self-care (01) ==
LOC: LAB 15:19
PROVIDERS: ATTEND Internal Medicine
DX: D51.0 Vitamin B12 deficiency anemia due to intrinsic factor deficiency (principal); R47.81 Slurred speech; R47.89 Other speech disturbances
CPT/HCPCS: 36415; 80053; 82306; 85025; 85652

== ENCOUNTER → 2019-04-01 | Outpatient (CLI) | payer BC ==
[2019-04-01 12:53] LABS: BUN/Creatinine Ratio 30.8; Bilirubin, Total 0.3 mg/dL (0.2-1.0); Total Protein 7.7 g/dL (6.4-8.2)
== END | disposition home or self-care (01) ==
LOC: LAB 11:37
PROVIDERS: ATTEND Internal Medicine
DX: R51 Headache (principal)
CPT/HCPCS: 36415; 80053; 83520; 86256

== ENCOUNTER → 2019-04-15 | Outpatient (CLI) | payer BC ==
[2019-04-15 15:56] LABS: BUN/Creatinine Ratio 27.8; Potassium 3.4 mmol/L (3.5-5.1)
[2019-04-15 16:15] LABS: Basophils # (auto) 0 uL; Eosinophils # (auto) 0.1 uL; Eosinophils % (auto) 1.3 % (0.0-7.0); Hemoglobin 12.8 g/dL (12.2-16.2); Lymphocytes # (auto) 1.9 uL; Monocytes # (auto) 0.3 uL; Neutrophils # (auto) 2.4 uL; White Blood Cell 4.6 10^3/uL (4.4-10.8)
[2019-04-15 16:17] LABS: Basophils % (auto) 0.5 % (0.0-2.0); Hematocrit 38.7 % (36.0-46.0); Lymphocytes % (auto) 40.7 % (10.0-50.0); Mean Corpuscular Hemoglobin 25.9 pg (28.0-32.0); Mean Corpuscular Volume 78.4 fL (80.0-100.0); Monocytes % (auto) 6.3 % (0.0-12.0); Neutrophils % (auto) 51.2 % (37.0-80.0); Nucleated Red Blood Cells % 0.2 %; Platelet Count (auto) 247 10^3/uL (140-450); Red Blood Cells 4.94 10^6/uL (4.0-5.20); Red Cell Distribution Width 18.4 % (11.8-14.3)
== END | disposition home or self-care (01) ==
LOC: LAB 14:59
PROVIDERS: ATTEND Internal Medicine
DX: D51.0 Vitamin B12 deficiency anemia due to intrinsic factor deficiency (principal); E55.9 Vitamin D deficiency, unspecified
CPT/HCPCS: 36415; 80048; 82306; 82607; 82746; 85025

== ENCOUNTER → 2019-04-21 | Outpatient (CLI) | payer BC | END | disposition home or self-care (01) | LOC: LAB 15:11 | PROVIDERS: ATTEND Internal Medicine | DX: Z02.0 Encounter for examination for admission to educational institution (principal) | CPT/HCPCS: 86735; 86762; 86765; 86787 ==

== ENCOUNTER → 2019-06-21 | Outpatient (CLI) | payer BC | END | disposition home or self-care (01) | LOC: LAB 13:22 | PROVIDERS: ATTEND Internal Medicine | DX: B19.10 Unspecified viral hepatitis B without hepatic coma (principal); R76.0 Raised antibody titer; B26.9 Mumps without complication | CPT/HCPCS: 36415; 86706; 86735; 86762 ==

== ENCOUNTER → 2020-09-07 | Outpatient (CLI) | payer OTHER ==
[2020-09-07 15:19] LABS: Basophils # (auto) 0 10 ^3/uL (0-0.2); Basophils % (auto) 0.8 % (0.0-2.0); Eosinophils # (auto) 0 10 ^3/uL (0-0.8); Eosinophils % (auto) 1.1 % (0.0-7.0); Hematocrit 39.1 % (36.0-46.0); Hemoglobin 13.5 g/dL (12.2-16.2); Lymphocytes # (auto) 1.8 10 ^3/uL (0.4-5.4); Lymphocytes % (auto) 38.4 % (10.0-50.0); Mean Corpuscular Hemoglobin 30.6 pg (28.0-32.0); Mean Corpuscular Hgb Conc. 34.4 g/dL (32.0-36.0); Mean Corpuscular Volume 88.9 fL (80.0-100.0); Monocytes # (auto) 0.3 10 ^3/uL (0-1.3); Monocytes % (auto) 6.2 % (0.0-12.0); Neutrophils # (auto) 2.5 10 ^3/uL (1.6-8.6); Neutrophils % (auto) 53.5 % (37.0-80.0); Nucleated Red Blood Cells % 0.1 %; Platelet Count (auto) 204 10^3/uL (140-450); Red Cell Distribution Width 14.2 % (11.8-14.3); White Blood Cell 4.7 10^3/uL (4.4-10.8)
[2020-09-07 15:49] LABS: Albumin 4.1 g/dL (3.4-5.0); Calcium 9.1 mg/dL (8.5-10.1); Potassium 3.8 mmol/L (3.5-5.1)
[2020-09-07 15:55] LABS: Bilirubin, Total 0.6 mg/dL (0.2-1.0)
[2020-09-07 15:56] LABS: BUN/Creatinine Ratio 22.2
== END | disposition home or self-care (01) ==
LOC: LAB 15:08
PROVIDERS: ATTEND Physician Assistant
DX: I34.1 Nonrheumatic mitral (valve) prolapse (principal); E05.90 Thyrotoxicosis, unspecified without thyrotoxic crisis or storm; G43.001 Migraine without aura, not intractable, with status migrainosus; Z86.61 Personal history of infections of the central nervous system
CPT/HCPCS: 36415; 80053; 80061; 85025

== ENCOUNTER → 2020-11-29 | Outpatient (CLI) | payer OTHER | END | disposition home or self-care (01) | LOC: LAB 09:19 | PROVIDERS: ATTEND Nurse Practitioner Family | DX: Z02.0 Encounter for examination for admission to educational institution (principal); G43.011 Migraine without aura, intractable, with status migrainosus; M54.2 Cervicalgia | CPT/HCPCS: 82607 ==

== ENCOUNTER → 2021-07-26 | Outpatient (CLI) | payer MEDICAID ==
[2021-07-26 12:16] LABS: Basophils # (auto) 0 10 ^3/uL (0-0.2); Basophils % (auto) 0.4 % (0.0-2.0); Eosinophils # (auto) 0.1 10 ^3/uL (0-0.8); Eosinophils % (auto) 1.7 % (0.0-7.0); Hematocrit 43.3 % (36.0-46.0); Hemoglobin 14.7 g/dL (12.2-16.2); Lymphocytes # (auto) 1.6 10 ^3/uL (0.4-5.4); Lymphocytes % (auto) 29.4 % (10.0-50.0); Mean Corpuscular Hemoglobin 30.4 pg (28.0-32.0); Mean Corpuscular Volume 89.5 fL (80.0-100.0); Monocytes # (auto) 0.3 10 ^3/uL (0-1.3); Monocytes % (auto) 6.1 % (0.0-12.0); Neutrophils # (auto) 3.4 10 ^3/uL (1.6-8.6); Neutrophils % (auto) 62.4 % (37.0-80.0); Nucleated Red Blood Cells % 0.1 %; Red Blood Cells 4.83 10^6/uL (4.0-5.20); Red Cell Distribution Width 13.2 % (11.8-14.3); White Blood Cell 5.4 10^3/uL (4.4-10.8)
[2021-07-26 12:41] LABS: Potassium 3.9 mmol/L (3.5-5.1)
[2021-07-26 12:45] LABS: Albumin 4.2 g/dL (3.4-5.0); BUN/Creatinine Ratio 26.2; Calcium 9.3 mg/dL (8.5-10.1)
[2021-07-26 12:47] LABS: Free T4 (Free Thyroxine) 1.2 ng/dL (0.89-1.76)
[2021-07-26 12:54] LABS: Bilirubin, Total 0.6 mg/dL (0.2-1.0); Total Protein 8.2 g/dL (6.4-8.2)
== END | disposition home or self-care (01) ==
LOC: LAB 10:21
PROVIDERS: ATTEND Nurse Practitioner Family
DX: E05.90 Thyrotoxicosis, unspecified without thyrotoxic crisis or storm (principal); G43.011 Migraine without aura, intractable, with status migrainosus; R53.83 Other fatigue
CPT/HCPCS: 36415; 80053; 82607; 84439; 84443; 85025

== ENCOUNTER → 2022-04-11 | Outpatient (CLI) | payer MEDICAID ==
[2022-04-11 11:33] LABS: Basophils # (auto) 0 10 ^3/uL (0-0.2); Basophils % (auto) 0.7 % (0.0-2.0); Eosinophils # (auto) 0.2 10 ^3/uL (0-0.8); Eosinophils % (auto) 3.3 % (0.0-7.0); Hematocrit 44.3 % (36.0-46.0); Hemoglobin 14.8 g/dL (12.2-16.2); Lymphocytes # (auto) 1.8 10 ^3/uL (0.4-5.4); Lymphocytes % (auto) 34.5 % (10.0-50.0); Mean Corpuscular Hemoglobin 29.1 pg (28.0-32.0); Mean Corpuscular Hgb Conc. 33.3 g/dL (32.0-36.0); Mean Corpuscular Volume 87.4 fL (80.0-100.0); Monocytes # (auto) 0.4 10 ^3/uL (0-1.3); Monocytes % (auto) 7.6 % (0.0-12.0); Neutrophils # (auto) 2.9 10 ^3/uL (1.6-8.6); Neutrophils % (auto) 53.9 % (37.0-80.0); Nucleated Red Blood Cells % 0.1 %; Red Blood Cells 5.07 10^6/uL (4.0-5.20); Red Cell Distribution Width 13.2 % (11.8-14.3); White Blood Cell 5.3 10^3/uL (4.4-10.8)
[2022-04-11 11:51] LABS: Cholesterol 155 mg/dL (< 200); HDL Cholesterol 64 mg/dL (40-59); LDL Cholesterol 86 mg/dL (< 100); Triglycerides 66 mg/dL (< 150)
== END | disposition home or self-care (01) ==
LOC: LAB 11:20
PROVIDERS: ATTEND Internal Medicine
DX: E05.90 Thyrotoxicosis, unspecified without thyrotoxic crisis or storm (principal); R53.83 Other fatigue; E55.9 Vitamin D deficiency, unspecified
CPT/HCPCS: 36415; 80061; 82607; 83036; 84443; 85025; 85652

== ENCOUNTER → 2022-05-09 | Outpatient (CLI) | payer MEDICAID | END | disposition home or self-care (01) | LOC: LAB 14:59 | PROVIDERS: ATTEND Internal Medicine | DX: R73.03 Prediabetes (principal) | CPT/HCPCS: 36415; 83036 ==

== ENCOUNTER → 2022-08-09 | Outpatient (CLI) | payer MEDICAID | END | disposition home or self-care (01) | LOC: LAB 08:49 | PROVIDERS: ATTEND Internal Medicine | DX: R73.03 Prediabetes (principal); E55.9 Vitamin D deficiency, unspecified; R63.5 Abnormal weight gain | CPT/HCPCS: 36415; 82533; 82607; 84443 ==

== ENCOUNTER → 2023-03-21 | Outpatient (CLI) | payer MEDICAID | END | disposition home or self-care (01) | LOC: LAB 14:59 | PROVIDERS: ATTEND Obstetrics & Gynecology | DX: D06.0 Carcinoma in situ of endocervix (principal); R85.610 Atypical squamous cells of undetermined significance on cytologic smear of anus (ASC-US); R87.810 Cervical high risk human papillomavirus (HPV) DNA test positive ==

== ENCOUNTER 2023-04-25 07:33 | Day surgery (SDC) | payer MEDICAID ==
[~2023-04-25] VITALS: Ht 162.6 cm; Wt 68.9 kg
[~2023-04-25 07:33] MED LIST: SEMA7TAB2 PO
[2023-04-25] MEDS ORDERED: ONDANSETRON HCL 4 MG/2 ML VIAL ONE ×2 (07:54→09:34)
[2023-04-25] MEDS ORDERED: DexAMETHasone SOD PHOS 10MG/1ML VIAL INJ ONE (07:54)
[2023-04-25] MEDS ORDERED: PROPOFOL 10 MG/ML 20 ML IV ONE ×2 (07:54→08:56)
[2023-04-25] MEDS ORDERED: GLYCOPYRROLATE 0.2 MG/ML 1ML VIAL ONE (07:54)
[2023-04-25] MEDS ORDERED: LIDOCAINE 1% (LOCAL ANESTH.) PF 5ml SDV ONE (07:55)
[2023-04-25] MEDS ORDERED: fentaNYL CITRATE 100 MCG/2 ML VL ONE (07:57)
[2023-04-25] MEDS ORDERED: ZOFR4T PO (08:19)
[2023-04-25] MEDS ORDERED: HYDR-4902 PO (08:19)
[2023-04-25] MEDS ORDERED: KETOROLAC TROMETH 60MG/2ML VIAL ONE (08:37)
[2023-04-25] MEDS ORDERED: ceFAZolin 1GM/50ML 100 ML IV ONE (08:39)
[2023-04-25] MEDS ORDERED: diphenhdrAMINE HCL 50 MG/1 ML VL ONE (08:40)
[2023-04-25] MEDS ORDERED: IODINE STRONG 5% SOLN 14ML ONE (08:41)
[2023-04-25] MEDS ORDERED: FERRIC SUBSULFATE TOPICAL SOLN 30 ML BTL ONE (08:41)
[2023-04-25] MEDS ORDERED: LIDOCAINE W/ EPINEPHRINE 1% 20ML VIAL ONE (09:00)
[2023-04-25 09:12] VITALS: TEMP 97.4; O2SAT 100
[2023-04-25] MEDS ORDERED: LACTATED RINGER'S 1,000 ML IV SCH (09:15)
[2023-04-25] MEDS ORDERED: ONDANSETRON HCL 4 MG/2 ML VIAL IV PRN ×2 (09:15→09:45)
[2023-04-25] MEDS ORDERED: ePHEDrine SULFATE 50 MG/ML AMP IV PRN (09:45)
[2023-04-25] MEDS ORDERED: FLUMAZENIL 0.1 MG/ML INJ 10ML MDV IV PRN (09:45)
[2023-04-25] MEDS ORDERED: PROMETHAZINE HCL 25 MG/ML 1ML IM PRN (09:45)
[2023-04-25] MEDS ORDERED: oxyCODONE HCL 5MG TAB PO PRN (09:45)
[2023-04-25] MEDS ORDERED: LABETALOL HCL 5 MG/ML 4ML SYRINGE IV PRN (09:45)
[2023-04-25] MEDS ORDERED: NALOXONE HCL 0.4 MG/ML VIAL IV PRN (09:45)
[2023-04-25] MEDS ORDERED: hydrALAZINE HCL 20 MG/ML VL IV PRN (09:45)
[2023-04-25] MEDS ORDERED: HYDROmorphone HCL 2 MG/ML VL/or syr IV PRN (09:45)
[2023-04-25] MEDS ORDERED: ACETAMINOPHEN IV 1000 MG/100ML (10MG/ML) IV ONE (09:45)
[2023-04-25] MEDS ORDERED: fentaNYL CITRATE 100 MCG/2 ML VL IV PRN (09:45)
[2023-04-25] MEDS ORDERED: ACETAMINOPHEN IV 100 ML IV ONE (09:52)
[2023-04-25 10:45] VITALS: BP 113/77; PULSE 55; RESP 12; O2SAT 96
== END 2023-04-25 10:55 | disposition home or self-care (01) ==
LOC: SUR 07:33
PROVIDERS: ATTEND Obstetrics & Gynecology
DX: R87.613 High grade squamous intraepithelial lesion on cytologic smear of cervix (HGSIL) (principal)
CPT/HCPCS: 57522; J0131; J0690; J1100; J1200; J1885; J2405; J2704; J3010

== ENCOUNTER → 2024-04-26 | Outpatient (CLI) | payer BC ==
[~2024-04-26] MED LIST changes: +HYDR-4902 PO; +ZOFR4T PO
[2024-04-26 12:57] LABS: Basophils # (auto) 0 10 ^3/uL (0-0.2); Basophils % (auto) 0.5 % (0.0-2.0); Eosinophils # (auto) 0.2 10 ^3/uL (0-0.8); Eosinophils % (auto) 1.9 % (0.0-7.0); Hematocrit 39.5 % (36.0-46.0); Hemoglobin 13.8 g/dL (12.2-16.2); Lymphocytes # (auto) 2.2 10 ^3/uL (0.4-5.4); Lymphocytes % (auto) 24.1 % (10.0-50.0); Mean Corpuscular Hemoglobin 30.9 pg (28.0-32.0); Mean Corpuscular Hgb Conc. 34.8 g/dL (32.0-36.0); Mean Corpuscular Volume 88.7 fL (80.0-100.0); Monocytes # (auto) 0.6 10 ^3/uL (0-1.3); Monocytes % (auto) 6.1 % (0.0-12.0); Neutrophils # (auto) 6.2 10 ^3/uL (1.6-8.6); Neutrophils % (auto) 67.4 % (37.0-80.0); Platelet Count (auto) 233 10^3/uL (140-450); Red Blood Cells 4.45 10^6/uL (4.0-5.20); White Blood Cell 9.2 10^3/uL (4.4-10.8)
[2024-04-26 13:10] LABS: Urine Bacteria FEW /hpf (None Seen); Urine Blood Negative /uL (Negative); Urine Clarity Clear (Clear); Urine Color Light-Yellow (Yellow); Urine Protein, UAD Negative (Negative); Urine Specific Gravity 1.018 (1.001-1.035); Urine Urobilinogen Normal (Negative); Urine WBC 1 /hpf (0 - 5)
[2024-04-26 13:43] LABS: Alanine Aminotransferase 18 U/L (7-40); Albumin 4.3 g/dL (3.2-4.8); Alkaline Phosphatase 63 U/L (46-116); Anion Gap 6 (5-15); Aspartate Aminotransferase 13 U/L (13-40); BUN/Creatinine Ratio 16.4 (10.0-20.0); Bilirubin, Total 0.4 mg/dL (0.2-1.0); Blood Urea Nitrogen 10 mg/dL (9-23); Calcium 9.7 mg/dL (8.7-10.4); Carbon Dioxide 21 mmol/L (20-31); Chloride 109 mmol/L (98-107); Glucose 112 mg/dL (74-106); Potassium 3.6 mmol/L (3.5-5.1); Sodium 136 mmol/L (136-145)
[2024-04-27 08:06] LABS: RPR Non Reactive (Non Reactive)
[2024-04-28 10:07] LABS: Treponema Pallidum Ab LC Non Reactive (Non Reactive)
== END | disposition home or self-care (01) ==
LOC: LAB 12:31
PROVIDERS: ATTEND Nurse Practitioner Women's Health
DX: Z34.80 Encounter for supervision of other normal pregnancy, unspecified trimester (principal)
CPT/HCPCS: 36415; 80053; 81001; 84144; 84702; 85025; 86592; 86703; 86762; 86780; 86850; 86900; 86901; 87086; 87340

== ENCOUNTER → 2024-05-27 | Outpatient (CLI) | payer BC ==
[2024-05-27 08:52] LABS: Basophils # (auto) 0 10 ^3/uL (0-0.2); Basophils % (auto) 0.5 % (0.0-2.0); Eosinophils # (auto) 0.1 10 ^3/uL (0-0.8); Eosinophils % (auto) 1.1 % (0.0-7.0); Hematocrit 41.1 % (36.0-46.0); Lymphocytes # (auto) 1.8 10 ^3/uL (0.4-5.4); Lymphocytes % (auto) 22.3 % (10.0-50.0); Mean Corpuscular Hemoglobin 30.2 pg (28.0-32.0); Mean Corpuscular Volume 88.6 fL (80.0-100.0); Monocytes # (auto) 0.5 10 ^3/uL (0-1.3); Monocytes % (auto) 5.8 % (0.0-12.0); Neutrophils # (auto) 5.8 10 ^3/uL (1.6-8.6); Neutrophils % (auto) 70.3 % (37.0-80.0); Nucleated Red Blood Cells % 0.1 %; Platelet Count (auto) 246 10^3/uL (140-450); Red Blood Cells 4.63 10^6/uL (4.0-5.20); Red Cell Distribution Width 14.1 % (11.8-14.3); White Blood Cell 8.3 10^3/uL (4.4-10.8)
[2024-05-27 09:08] LABS: Alanine Aminotransferase 55 U/L (7-40); Albumin 4.4 g/dL (3.2-4.8); Alkaline Phosphatase 67 U/L (46-116); Anion Gap 9 (5-15); Aspartate Aminotransferase 28 U/L (13-40); BUN/Creatinine Ratio 15.1 (10.0-20.0); Bilirubin, Total 0.4 mg/dL (0.2-1.0); Blood Urea Nitrogen 8 mg/dL (9-23); Calcium 9.9 mg/dL (8.7-10.4); Carbon Dioxide 23 mmol/L (20-31); Chloride 108 mmol/L (98-107); Glucose 98 mg/dL (74-106); Potassium 3.4 mmol/L (3.5-5.1); Sodium 140 mmol/L (136-145); Total Protein 7.2 g/dL (5.7-8.2)
[2024-05-27 13:37] LABS: Ferritin 8.5 ng/mL (10-291); Folate (Folic Acid) > 24.00 ng/mL (>5.38)
[2024-05-27 13:38] LABS: Free T4 (Free Thyroxine) 1.06 ng/dL (0.89-1.76)
[2024-05-27 13:54] LABS: % Iron Saturation 22.1 % (15-50)
[2024-05-28 08:06] LABS: T3 Uptake 13 % (24-39); Thyroid Peroxidase (TPO) Ab 15 IU/mL (0-34); Thyroxine (T4) 11.2 ug/dL (4.5-12.0)
[2024-05-28 11:07] LABS: Thyroglobulin Antibody <1.0 IU/mL (0.0-0.9)
[2024-05-29 04:06] LABS: Chlamydia Trachomatis, NAA Negative (Negative); Neisseria gonorrhoeae, NAA Negative (Negative)
== END | disposition home or self-care (01) ==
LOC: LAB 08:13
PROVIDERS: ATTEND Obstetrics & Gynecology
DX: Z34.80 Encounter for supervision of other normal pregnancy, unspecified trimester (principal); Z3A.00 Weeks of gestation of pregnancy not specified
CPT/HCPCS: 36415; 80053; 82306; 82607; 82728; 82746; 82951; 83036; 83540; 83550; 84436; 84439; 84443; 84479; 84480; 85025; 86376; 86780; 86800; 86850; 86900; 86901; 87086

== ENCOUNTER → 2024-06-17 | Outpatient (CLI) | payer BC | END | disposition home or self-care (01) | LOC: LAB 10:14 | PROVIDERS: ATTEND Nurse Practitioner Women's Health | DX: O24.419 Gestational diabetes mellitus in pregnancy, unspecified control (principal); Z3A.00 Weeks of gestation of pregnancy not specified | CPT/HCPCS: 82951 ==

== ENCOUNTER → 2024-09-03 | Outpatient (CLI) | payer BC ==
[2024-09-03 08:22] LABS: Alanine Aminotransferase 17 U/L (7-40); Albumin 4.3 g/dL (3.2-4.8); Alkaline Phosphatase 114 U/L (46-116); Anion Gap 11 (5-15); BUN/Creatinine Ratio 18.8 (10.0-20.0); Bilirubin, Total 0.6 mg/dL (0.2-1.0); Calcium 9.7 mg/dL (8.7-10.4); Carbon Dioxide 21 mmol/L (20-31); Chloride 106 mmol/L (98-107); Glucose 90 mg/dL (74-106); Potassium 3.6 mmol/L (3.5-5.1); Sodium 138 mmol/L (136-145); Total Protein 6.7 g/dL (5.7-8.2)
[2024-09-03 08:34] LABS: Aspartate Aminotransferase < 8 U/L (13-40); Blood Urea Nitrogen 9 mg/dL (9-23)
[2024-09-03 08:37] LABS: Basophils # (auto) 0 10 ^3/uL (0-0.2); Basophils % (auto) 0.3 % (0.0-2.0); Eosinophils # (auto) 0.1 10 ^3/uL (0-0.8); Hematocrit 41.9 % (36.0-46.0); Hemoglobin 13.7 g/dL (12.2-16.2); Lymphocytes # (auto) 1.8 10 ^3/uL (0.4-5.4); Lymphocytes % (auto) 19.2 % (10.0-50.0); Mean Corpuscular Hemoglobin 30.3 pg (28.0-32.0); Mean Corpuscular Hgb Conc. 32.8 g/dL (32.0-36.0); Mean Corpuscular Volume 92.6 fL (80.0-100.0); Monocytes # (auto) 0.5 10 ^3/uL (0-1.3); Monocytes % (auto) 5.1 % (0.0-12.0); Neutrophils # (auto) 6.9 10 ^3/uL (1.6-8.6); Neutrophils % (auto) 74.4 % (37.0-80.0); Nucleated Red Blood Cells % 0.1 %; Platelet Count (auto) 193 10^3/uL (140-450); Red Blood Cells 4.53 10^6/uL (4.0-5.20); Red Cell Distribution Width 15.9 % (11.8-14.3); White Blood Cell 9.3 10^3/uL (4.4-10.8)
[2024-09-04 22:06] LABS: Chlamydia Trachomatis, NAA Negative (Negative); Neisseria gonorrhoeae, NAA Negative (Negative)
== END | disposition home or self-care (01) ==
LOC: LAB 07:32
PROVIDERS: ATTEND Nurse Practitioner Women's Health
DX: Z34.00 Encounter for supervision of normal first pregnancy, unspecified trimester (principal); Z3A.00 Weeks of gestation of pregnancy not specified
CPT/HCPCS: 36415; 80053; 82951; 82952; 83036; 85025; 86850; 86900; 86901

== ENCOUNTER 2024-09-21 10:15 | Observation (INO) | payer BC ==
[2024-09-21] MEDS ORDERED: PREN-96 PO (11:44)
--- NOTE | 2024-09-21 12:18 | DVH ---
Procedure: US BIOPHYSICAL PROFILE 09/21/2024 10:41 AM Indication: GDMA1 Comparison: None Technique: Sonogram of gravid uterus utilizing grayscale and color techniques. FINDINGS: Single living intrauterine gestation. Presentation: Breech Placenta: Posterior heart rate: 136 bpm MP: 17.9 cm, DVP: 5.2 cm Maternal cervix: Not visualized Biophysical Profile: breathing score: 2 movement score: 2 tone: 2 Quantitative MP score: 2 Total score: 8/8 IMPRESSION: 1. Single living as above. 2. Biophysical profile score: 8/8.
--- NOTE | 2024-09-21 13:28 | DVHDS2 ---
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 Chaney consulted, agrees with POC. Other Interventions Other Interventions [place] [address] Ph: [phone] DIAGNOSTIC IMAGING Diagnostic Imaging Report : [id number] Signed PATIENT: JOSE SALOMON ACCT: [id number] UNIT: [id number] : 1995 LOC: [facility] ROOM / BED: [facility] / A AGE / SEX: 29 / F ADM STATUS: ADM IN SERVICE 1025 ORDERING PHYSICIAN: LIBAN VIEYRA CNM PROCEDURE(s): BPP - BIOPHYSICAL PROFILE REASON: GDMA1 ORDER NUMBER(s): [id number], ACCESSION NUMBER(s): [id number] Procedure: US BIOPHYSICAL PROFILE 09/21/2024 10:41 AM Indication: GDMA1 Comparison: None Technique: Sonogram of gravid uterus utilizing grayscale and color techniques. FINDINGS: Single living intrauterine gestation. Presentation: Breech Placenta: Posterior heart rate: 136 bpm MP: 17.9 cm, DVP: 5.2 cm Maternal cervix: Not visualized Biophysical Profile: breathing score: 2 movement score: 2 tone: 2 Quantitative MP score: 2 Total score: 8/8 IMPRESSION: 1. Single living as above. 2. Biophysical profile score: 8/8. ATED BY: QI HU MD DICTATED DATE/TIME: 09/21/241214 SIGNED BY: QI HU MD SIGNED DATE/TIME: 09/21/241214 CC: Condition on Discharge: Stable Disposition: Home Discharge Instructions: Diet: Regular Activity: No Restrictions, As Tolerated Medications: see med list Follow Up Care: Specialist: f/u in 1wk Discharge Statement: "Patient was advised to return to the ER or call 911 if any headaches, dizziness, shortness of breath, chest pain, abdominal pain, bleeding, fevers, or worsening of medical condition. Patient was counseled about treatment plan, medications, possible side effects, patientverbalized understanding. All questions were answered to the best of my ability. This discharge took greater then 30 minutes in planning, reviewing documentation, counseling the patient, and discussing with other team members." Visit Coding OBGYN Date of Service: Sep 21, 2024 Billing Provider: LIBAN VIEYRA CNM SCIENCE TUTOR Common Visit Codes: 24861-ELZOLMO OBS CARE (HIGH) SCIENCE TUTOR Procedure Codes: 38238-72- NON-STRESS TEST LIBAN VIEYRA CNM Sep 21, 2024 13:28
== END 2024-09-21 11:54 | disposition home or self-care (01) ==
LOC: UNDOADMOB 10:15 → LDRP 10:15 → UNDODISOB 11:54
PROVIDERS: ADMIT Obstetrics & Gynecology; ATTEND Obstetrics & Gynecology
DX: O24.419 Gestational diabetes mellitus in pregnancy, unspecified control (principal); O62.9 Abnormality of forces of labor, unspecified; Z3A.32 32 weeks gestation of pregnancy; Z88.5 Allergy status to narcotic agent; Z91.040 Latex allergy status; Z79.899 Other long term (current) drug therapy
CPT/HCPCS: 76819; 81002; 82948; 82962; 94760; G0378

== ENCOUNTER 2024-09-28 06:33 | Observation (INO) | payer BC ==
[~2024-09-28 06:33] MED LIST changes: +PREN-96 PO
--- NOTE | 2024-09-28 11:49 | DVH ---
CLINICAL HISTORY: Gestational diabetes. COMPARISON: US BIOPHYSICAL PROFILE on DOS: 09/21/24 TECHNIQUE: biophysical profile was performed. Transabdominal sonographic images of the fetus we re obtained. FINDINGS: The fetus is in cephalic position. heart rate measures 126 BPM. Amniotic fluid index measures 15.6 cm. The placenta is right lateral in position. BPP profile is an overall score of 8/8, with 2/2 points for breathing, with at least one episode of breathing over a 30 second duration during a 30 minute observation, 2/2 points for m ovements, with 3 or more discrete body or limb movements, 2/2 points for tone, with one or more episodes of extremity extension with return to flexion, or opening and closing of hand, and 2/ 2 points for amniotic fluid, with at least 1 pocket of amniotic fluid that measures 2 cm in 2 perpend icular planes. IMPRESSION: BPP score of 8/8.
--- NOTE | 2024-09-28 15:46 | DVHDS2 ---
Physician Discharge Progress N Final Diagnosis: GDM Operations or Procedures: Operations or Procedures NST/BPP/MP Commentary: Commentary PATIENT: JOSE SALOMON ACCT: [id number] UNIT: [id number] : 1995 LOC: [facility] ROOM / BED: TRI[facility]1 / A AGE / SEX: 29 / F ADM STATUS: ADM IN SERVICE 1102 ORDERING PHYSICIAN: JESÚS PERSAUD DO PROCEDURE(s): BPP - BIOPHYSICAL PROFILE REASON: GDMA2 ORDER NUMBER(s): [id number], ACCESSION NUMBER(s): [id number] CLINICAL HISTORY: Gestational diabetes. COMPARISON: US BIOPHYSICAL PROFILE on DOS: 09/21/24 TECHNIQUE: biophysical profile was performed. Transabdominal sonographic images of the fetus were obtained. FINDINGS: The fetus is in cephalic position. heart rate measures 126 BPM. Amniotic fluid index measures 15.6 cm. The placenta is right lateral in position. BPP profile is an overall score of 8/8, with 2/2 points for breathing, with at least one episode of breathing over a 30 second duration during a 30 minute observation, 2/2 points for movements, with 3 or more discrete body or limb movements, 2/2 points for tone, with one or more episodes of extremity extension with return to flexion, or opening and closing of hand, and 2/2 points for amniotic fluid, with at least 1 pocket of amniotic fluid that measures 2 cm in 2 perpendicular planes. IMPRESSION: BPP score of 8/8. Condition on Discharge: Stable Disposition: Home Discharge Instructions: Diet: Consistent carbohydrate Activity: Light activity Follow Up/Referral: 3-4 days Medications: na Follow Up Care: Discharge Statement: "Patient was advised to return to the ER or call 911 if any headaches, dizzines s, shortness of breath, chest pain, abdominal pain, bleeding, fevers, or worsening of medical condition. Patient was counseled about treatment plan, medications, possible side effects, patientverbalized understanding. All questions were answered to the best of my ability. This discharge took greater then 30 minutes in planning, reviewing documentation, counseling the patient, and discussing with other team members." Visit Coding OBGYN Date of Service: Sep 28, 2024 Billing Provider: JESÚS PERSAUD DO SECTION MAINTAINER Common Visit Codes: 13204-WHB/OBS SAME DATE (MOD) SECTION MAINTAINER Procedure Codes: 48395-19- NON-STRESS TEST JESÚS PERSAUD DO Sep 28, 2024 15:46
== END 2024-09-28 12:10 | disposition home or self-care (01) ==
LOC: UNDOADMOB 10:55 → LDRP 10:55
PROVIDERS: ADMIT Obstetrics & Gynecology; ATTEND Obstetrics & Gynecology
DX: O24.419 Gestational diabetes mellitus in pregnancy, unspecified control (principal); Z98.890 Other specified postprocedural states; Z79.899 Other long term (current) drug therapy; Z3A.33 33 weeks gestation of pregnancy
CPT/HCPCS: 76818; 81002; 82948; 82962; 94760; G0378; 76819

== ENCOUNTER 2024-10-01 08:50 | Observation (INO) | payer BC ==
--- NOTE | 2024-10-01 10:58 | DVH ---
BIOPHYSICAL PROFILE HISTORY: gdma1 TECHNIQUE: Multiple transabdominal real-time grayscale sonographic images through the gravid uterus of the fetus with duplex Doppler color flow and M-mode spectral analysis FINDINGS: BIOPHYSICAL PROFILE: breathing score: 2 movement score: 2 tone score: 2 Quantitative MP score: 2 (MP: 8 Cm.) Total score: 8 The cervix was not seen. Single live fetus in cephalic presentation. heart rate 143 beats per minute. IMPRESSION: Biophysical profile score: 8/8
--- NOTE | 2024-10-01 13:47 | DVHDS2 ---
Physician Discharge Progress N Final Diagnosis: gdm 33wks Operations or Procedures: Operations or Procedures nst 33 wks,sono Condition on Discharge: Good Disposition: Home Discharge Instructions: Diet: Consistent carbohydrate Activity: No Restrictions, As Tolerated Medications: na Follow Up Care: Specialist: 1w Discharge Statement: "Patient was advised to return to the ER or call 911 if any headaches, dizziness, shortness of breath, chest pain, abdominal pain, bleeding, fevers, or worsening of medical condition. Patient was counseled about treatment plan, medications, possible side effects, patientverbalized understanding. All questions were answered to the best of my ability. This discharge took greater then 30 minutes in planning, reviewing docu mentation, counseling the patient, and discussing with other team members." Visit Coding OBGYN Date of Service: Oct 01, 2024 Billing Provider: KRYSTAL ELDER DO DESIGN ANALYST Common Visit Codes: 44152-LLKMUYA INP/OBS CARE (HIGH) DESIGN ANALYST Procedure Codes: 43450-22- NON-STRESS TEST KRYSTAL ELDER DO Oct 01, 2024 13:47
== END 2024-10-01 10:48 | disposition home or self-care (01) ==
LOC: LDRP 08:50
PROVIDERS: ADMIT Obstetrics & Gynecology; ATTEND Obstetrics & Gynecology
DX: O24.419 Gestational diabetes mellitus in pregnancy, unspecified control (principal); Z3A.33 33 weeks gestation of pregnancy; Z79.899 Other long term (current) drug therapy
CPT/HCPCS: 59025; 76819; 81002; 82948; 82962; 94760; G0378

== ENCOUNTER 2024-10-05 07:03 | Observation (INO) | payer BC ==
--- NOTE | 2024-10-05 11:33 | DVH ---
BIOPHYSICAL PROFILE HISTORY: GDMA1 TECHNIQUE: Multiple transabdominal real-time grayscale sonographic images through the gravid uterus of the fetus with duplex Doppler color flow and M-mode spectral analysis FINDINGS: BIOPHYSICAL PROFILE: breathing score: 2 movement score: 2 tone score: 2 Quantitative MP score: 2 (MP: 12 Cm.) Total score: 8 The cervix was not seen Single live fetus in cephalic presentation. heart rate 135 beats per minute. Grade II posterior placenta without previa or abruption IMPRESSION: Biophysical profile score: 8/8
--- NOTE | 2024-10-05 23:10 | DVHDS2 ---
Physician Discharge Progress N Final Diagnosis: testing for GDM, A1 Operations or Procedures: Operations or Procedures 29yo IUP@34.1wks VSS NST reactive FKC/PTL precautions reviewed Dr. Chaney consulted, agrees with POC. Other Interventions Other Interventions [address] [address] Ph: [phone] DIAGNOSTIC IMAGING Diagnostic Imaging Report : [id number] Signed PATIENT: JOSE SALOMON ACCT: [id number] UNIT: [id number] : 1995 LOC: [facility] ROOM / BED: [facility] / A AGE / SEX: 29 / F ADM STATUS: ADM IN SERVICE 1050 ORDERING PHYSICIAN: LIBAN VIEYRA CNM PROCEDURE(s): BPP - BIOPHYSICAL PROFILE REASON: GDMA1 ORDER NUMBER(s): [id number], ACCESSION NUMBER(s): [id number] BIOPHYSICAL PROFILE HISTORY: GDMA1 TECHNIQUE: Multiple transabdominal real-time grayscale sonographic images through the gravid uterus of the fetus with duplex Doppler color flow and M-mode spectral analysis FINDINGS: BIOPHYSICAL PROFILE: breathing score: 2 movement score: 2 tone score: 2 Quantitative MP score: 2 (MP: 12 Cm.) Total score: 8 The cervix was not seen Single live fetus in cephalic presentation. heart rate 135 beats per minute. Grade II posterior placenta without previa or abruption IMPRESSION: Biophysical profile score: 8/8 ATED BY: NAEEM ALANIS MD DICTATED DATE/TIME: 10/05/24 1130 SIGNED BY: NAEEM ALANIS MD SIGNED DATE/TIME: 10/05/24 1130 CC: Condition on Discharge: Stable Disposition: Home Discharge Instructions: Diet: Consistent carbohydrate Activity: No Restrictions, As Tolerated Medications: see med list Follow Up Care: Specialist: f/u in 1 week Discharge Statement: "Patient was advised to return to the ER or call 911 if any headaches, dizziness, shortness of breath, chest pain, abdominal pain, bleeding, fevers, or worsening of medical condition. Patient was counseled about treatment plan, medications, possible side effects, patientverbalized understanding. All questions were answered to the best of my ability. This discharge took greater then 30 minutes in planning, reviewing do cumentation, counseling the patient, and discussing with other team members." Visit Coding OBGYN Date of Service: Oct 05, 2024 Billing Provider: LIBAN VIEYRA CNM ASSOCIATE SALES Common Visit Codes: 00449-MJJTCFU OBS CARE (HIGH) ASSOCIATE SALES Procedure Codes: 18617-26- NON-STRESS TEST LIBAN VIEYRA CNM Oct 05, 2024 23:10
== END 2024-10-05 11:52 | disposition home or self-care (01) ==
LOC: LDRP 10:38 → UNDOADMOB 10:38 → LDRP 10:51 → UNDODISOB 11:52
PROVIDERS: ADMIT Obstetrics & Gynecology; ATTEND Obstetrics & Gynecology
DX: O09.33 Supervision of pregnancy with insufficient antenatal care, third trimester (principal); O24.419 Gestational diabetes mellitus in pregnancy, unspecified control; Z98.890 Other specified postprocedural states; Z79.899 Other long term (current) drug therapy; Z3A.34 34 weeks gestation of pregnancy
CPT/HCPCS: 76818; 81002; 82948; 82962; 94760; G0378; 76819

== ENCOUNTER 2024-10-12 07:17 | Observation (INO) | payer BC ==
--- NOTE | 2024-10-12 10:28 | DVH ---
Procedure: US BIOPHYSICAL PROFILE 10/12/2024 10:03 AM Indication: GDMA1 Comparison: US BIOPHYSICAL PROFILE on DOS: 10/05/24, US BIOPHYSICAL PROFILE on DOS: 10/01/24, US BIOPHYS ICAL PROFILE on DOS: 09/28/24 Technique: Sonogram of gravid uterus utilizing grayscale and color techniques. FINDINGS: Single living intrauterine gestation. Presentation: Cephalic Placenta: Posterior heart rate: 148 bpm MP: 15.3 cm, DVP: 6 cm Maternal cervix: Not visualized Other: Incidentally noted is bilateral hydroceles Biophysical Profile: breathing score: 2 movement score: 2 tone: 2 Quantitative MP score: 2 Total score: 8/8 IMPRESSION: 1. Single living as above. 2. Biophysical profile score: 8/8. 3. bilateral hydroceles. Recommend attention on follow-up.
--- NOTE | 2024-10-12 22:12 | DVHDS2 ---
Physician Discharge Progress N Final Diagnosis: testing for GDM, A2 Operations or Procedures: Operations or Procedures 29yo IUP@38.2wks VSS NST reactive FKC/Labor precautions reviewed Other Interventions Other Interventions [address] [address] Ph: [phone] DIAGNOSTIC IMAGING Diagnostic Imaging Report : [id number] Signed PATIENT: JOSE SALOMON ACCT: [id number] UNIT: [id number] : 1995 LOC: [facility] ROOM / BED: TRIAGE3 / A AGE / SEX: 29 / F ADM STATUS: ADM IN SERVICE 0952 ORDERING PHYSICIAN: QI ELDER DO PROCEDURE(s): BPP - BIOPHYSICAL PROFILE REASON: GDMA1 ORDER NUMBER(s): [id number], ACCESSION NUMBER(s): [id number] Procedure: US BIOPHYSICAL PROFILE 10/12/2024 10:03 AM Indication: GDMA1 Comparison: US BIOPHYSICAL PROFILE on DOS: 10/05/24, US BIOPHYSICAL PROFILE on DOS: 10/01/24, US BIOPHYSICAL PROFILE on DOS: 09/28/24 Technique: Sonogram of gravid uterus utilizing grayscale and color techniques. FINDINGS: Single living intrauterine gestation. Presentation: Cephalic Placenta: Posterior heart rate: 148 bpm MP: 15.3 cm, DVP: 6 cm Maternal cervix: Not visualized Other: Incidentally noted is bilateral hydroceles Biophysical Profile: breathing score: 2 movement score: 2 tone: 2 Quantitative MP score: 2 Total score: 8/8 IMPRESSION: 1. Single living as above. 2. Biophysical profile score: 8/8. 3. bilateral hydroceles. Recommend attention on follow-up. ATED BY: QI HU MD DICTATED DATE/TIME: 10/12/24 1026 SIGNED BY: QI HU MD SIGNED DATE/TIME: 10/12/24 1026 CC: Condition on Discharge: Stable Disposition: Home Discharge Instructions: Diet: Regular Activity: No Restrictions, As Tolerated Medications: see med list Follow Up Care: Specialist: f/u in 3 days Discharge Statement: "Patient was advised to return to the ER or call 911 if any headaches, dizziness, shortness of breath, chest pain, abdominal pain, bleeding, fevers, or worsening of medical condition. Patient was counseled about treatment plan, medications, possible side effects, patientverbalized understanding. All questions were answered to the best of my ability. This discharge took greater then 30 minutes in planning, reviewing documentation, counseling the patient, and discussing with other team members." Visit Coding OBGYN Date of Service: Oct 12, 2024 Billing Provider: LIBAN VIEYRA CNM MINING ANALYST Common Visit Codes: [id number] OBS CARE (HIGH) MINING ANALYST Procedure Codes: 41362-04- NON-STRESS TEST LIBAN VIEYRA CNM Oct 12, 2024 22:11
== END 2024-10-12 10:49 | disposition home or self-care (01) ==
LOC: LDRP 09:47
PROVIDERS: ADMIT Obstetrics & Gynecology; ATTEND Obstetrics & Gynecology
DX: O24.419 Gestational diabetes mellitus in pregnancy, unspecified control (principal); O26.893 Other specified pregnancy related conditions, third trimester; R60.0 Localized edema; O26.853 Spotting complicating pregnancy, third trimester; Z98.890 Other specified postprocedural states; Z79.899 Other long term (current) drug therapy; Z3A.35 35 weeks gestation of pregnancy
CPT/HCPCS: 76818; 81002; 82948; 82962; 94760; G0378; 76819

== ENCOUNTER 2024-10-19 07:02 | Observation (INO) | payer BC ==
--- NOTE | 2024-10-19 07:48 | DVH ---
BIOPHYSICAL PROFILE HISTORY: gdma1 TECHNIQUE: Multiple transabdominal real-time grayscale sonographic images through the gravid uterus of the fetus with duplex Doppler color flow and M-mode spectral analysis FINDINGS: BIOPHYSICAL PROFILE: breathing score: 2 movement score: 2 tone score: 2 Quantitative MP score: 2 (MP: 14.6 Cm.) Total score: 8 The cervix is not visualized Single live fetus in cephalic presentation. heart rate 114 beats per minute. Posterior placenta without previa or abruption IMPRESSION: 1. Biophysical profile score: 8/8
--- NOTE | 2024-10-19 09:31 | DVHDS2 ---
Physician Discharge Progress N Final Diagnosis: gdm 36wks Operations or Procedures: Operations or Procedures nst,sono Condition on Discharge: Good Disposition: Home Discharge Instructions: Diet: Regular, Consistent carbohydrate Activity: No Restrictions, As Tolerated Medications: na Follow Up Care: Specialist: 4d Discharge Statement: "Patient was advised to return to the ER or call 911 if any headaches, dizziness, shortness of breath, chest pain, abdominal pain, bleeding, fevers, or worsening of medical condition. Patient was counseled about treatment plan, medications, possible side effects, patientverbalized understanding. All questions were answered to the best of my ability. This discharge took greater then 30 minutes in planning, reviewing do cumentation, counseling the patient, and discussing with other team members." Visit Coding OBGYN Date of Service: Oct 19, 2024 Billing Provider: KRYSTAL ELDER DO COMMERCIAL LITIGATION ATTORNEY Common Visit Codes: [id number] INP/OBS CARE (HIGH) COMMERCIAL LITIGATION ATTORNEY Procedure Codes: 22092-14- NON-STRESS TEST KRYSTAL ELDER DO Oct 19, 2024 09:31
== END 2024-10-19 08:19 | disposition home or self-care (01) ==
LOC: LDRP 07:02 → UNDOADMOB 07:02 → LDRP 07:08
PROVIDERS: ADMIT Obstetrics & Gynecology; ATTEND Obstetrics & Gynecology
DX: O24.419 Gestational diabetes mellitus in pregnancy, unspecified control (principal); Z3A.36 36 weeks gestation of pregnancy; Z79.899 Other long term (current) drug therapy
CPT/HCPCS: 76818; 81002; 82948; 82962; 94760; G0378; 76819

== ENCOUNTER 2024-10-26 08:00 | Observation (INO) | payer BC ==
--- NOTE | 2024-10-26 09:03 | DVH ---
BIOPHYSICAL PROFILE HISTORY: GDMA1 TECHNIQUE: Multiple transabdominal real-time grayscale sonographic images through the gravid uterus of the fetus with duplex Doppler color flow and M-mode spectral analysis FINDINGS: BIOPHYSICAL PROFILE: breathing score: 2 movement score: 2 tone score: 2 Quantitative MP score: 2 (MP: 17.0 Cm.) Total score: 8 Single live fetus in cephalic presentation. heart rate 137 beats per minute. Fundal/posteiror placenta without previa or abruption IMPRESSION: Biophysical profile score: 8
--- NOTE | 2024-10-26 09:35 | DVHDS2 ---
Physician Discharge Progress N Final Diagnosis: testing for GDM, A1 Secondary Diagnosis: gloria quintanilla contractions Operations or Procedures: Operations or Procedures 29yo IUP@37.1wks VSS NST reactive TOCO: irregular UCs SVE by RN: //HI FKC/LABOR precautions reviewed Dr. Chaney consulted, agrees with POC. Other Interventions Other Interventions [place] [address] Ph: [phone] DIAGNOSTIC IMAGING Diagnostic Imaging Report : [id number] Signed PATIENT: JOSE SALOMON ACCT: [id number] UNIT: [id number] : 1995 LOC: [facility] ROOM / BED: TRIAGE1 / A AGE / SEX: 29 / F ADM STATUS: ADM IN SERVICE 9 ORDERING PHYSICIAN: LIBAN VIEYRA CNM PROCEDURE(s): BPP - BIOPHYSICAL PROFILE REASON: GDMA1 ORDER NUMBER(s): [id number], ACCESSION NUMBER(s): [id number] BIOPHYSICAL PROFILE HISTORY: GDMA1 TECHNIQUE: Multiple transabdominal real-time grayscale sonographic images through the gravid uterus of the fetus with duplex Doppler color flow and M-mode spectral analysis FINDINGS: BIOPHYSICAL PROFILE: breathing score: 2 movement score: 2 tone score: 2 Quantitative MP score: 2 (MP: 17.0 Cm.) Total score: 8 Single live fetus in cephalic presentation. heart rate 137 beats per minute. Fundal/posteiror placenta without previa or abruption IMPRESSION: Biophysical profile score: 8 ATED BY: TAYLOR DIETRICH MD DICTATED DATE/TIME: 10/26/24900 SIGNED BY: TAYLOR DIETRICH MD SIGNED DATE/TIME: 10/26/24900 CC: Condition on Discharge: Stable Disposition: Home Discharge Instructions: Diet: Consistent carbohydrate Activity: No Restrictions, As Tolerated Medications: see med list Follow Up Care: Specialist: f/u in 1 wk Discharge Statement: "Patient was advised to return to the ER or call 911 if any headaches, dizziness, shortness of breath, chest pain, abdominal pain, bleeding, fevers, or worsening of medical condition. Patient was counseled about treatment plan, medications, possible side effects, patientverbalized understanding. All questions were answered to the best of my ability. This discharge took greater then 30 minutes in planning, reviewing documentation, counseling the patient, and discussing with other team members." Visit Coding OBGYN Date of Service: Oct 26, 2024 Billing Provider: LIBAN VIEYRA CNM INCOME AUDITOR Common Visit Codes: [id number] OBS CARE (HIGH) INCOME AUDITOR Procedure Codes: 35511-39- NON-STRESS TEST LIBAN VIEYRA CNM Oct 26, 2024 09:35
== END 2024-10-26 09:32 | disposition home or self-care (01) ==
LOC: LDRP 08:00 → UNDOADMOB 08:00 → LDRP 08:11 → UNDODISOB 09:32
PROVIDERS: ADMIT Obstetrics & Gynecology; ATTEND Obstetrics & Gynecology
DX: O24.419 Gestational diabetes mellitus in pregnancy, unspecified control (principal); O47.9 False labor, unspecified; Z98.890 Other specified postprocedural states; Z79.899 Other long term (current) drug therapy; Z3A.37 37 weeks gestation of pregnancy
CPT/HCPCS: 76818; 81002; 82948; 82962; 94760; G0378; 76819

== ENCOUNTER 2024-11-02 06:16 | Observation (INO) | payer BC ==
--- NOTE | 2024-11-02 09:24 | DVH ---
Procedure: US BIOPHYSICAL PROFILE 11/02/2024 08:39 AM Indication: GDMA1 Comparison: US BIOPHYSICAL PROFILE on DOS: 10/26/24, US BIOPHYSICAL PROFILE on DOS: 10/19/24, US BIOPHY SICAL PROFILE on DOS: 10/12/24 Technique: Sonogram of gravid uterus utilizing grayscale and color techniques. FINDINGS: Single living intrauterine gestation. Presentation: Cephalic Placenta: Fundal and posterior without previa or abruption heart rate: 127 bpm MP: 16.6 cm, DVP: 5.8 cm Maternal cervix: Not visualized Biophysical Profile: breathing score: 2 movement score: 2 tone: 2 Quantitative MP score: 2 Total score: 8/8 IMPRESSION: 1. Single living as above. 2. Biophysical profile score: 8/8.
--- NOTE | 2024-11-02 22:32 | DVHDS2 ---
Physician Discharge Progress N Final Diagnosis: testing for GDM, A1 Operations or Procedures: Operations or Procedures 29yo IUP@38.1wks VSS NST reactive FKC/Labor precautions reviewed Dr. Chaney consulted, agrees with POC Other Interventions Other Interventions [address] [address] Ph: [phone] DIAGNOSTIC IMAGING Diagnostic Imaging Report : [id number] Signed PATIENT: JOSE SALOMON ACCT: [id number] UNIT: [id number] : 1995 LOC: [facility] ROOM / BED: TRIAGE1 / A AGE / SEX: 29 / F ADM STATUS: ADM IN SERVICE 5 ORDERING PHYSICIAN: LIBAN VIEYRA CNM PROCEDURE(s): BPP - BIOPHYSICAL PROFILE REASON: GDMA1 ORDER NUMBER(s): [id number], ACCESSION NUMBER(s): [id number] Procedure: US BIOPHYSICAL PROFILE 11/02/2024 08:39 AM Indication: GDMA1 Comparison: US BIOPHYSICAL PROFILE on DOS: 10/26/24, US BIOPHYSICAL PROFILE on DOS: 10/19/24, US BIOPHYSICAL PROFILE on DOS: 10/12/24 Technique: Sonogram of gravid uterus utilizing grayscale and color techniques. FINDINGS: Single living intrauterine gestation. Presentation: Cephalic Placenta: Fundal and posterior without previa or abruption heart rate: 127 bpm MP: 16.6 cm, DVP: 5.8 cm Maternal cervix: Not visualized Biophysical Profile: breathing score: 2 movement score: 2 tone: 2 Quantitative MP score: 2 Total score: 8/8 IMPRESSION: 1. Single living as above. 2. Biophysical profile score: 8/8. ATED BY: QI HU MD DICTATED DATE/TIME: 11/02/24921 SIGNED BY: QI HU MD SIGNED DATE/TIME: 11/02/24921 CC: Condition on Discharge: Stable Disposition: Home Discharge Instructions: Diet: Consistent carbohydrate Activity: No Restrictions, As Tolerated Follow Up/Referral: [facility] on FridayNovember 08 for Induction of labor at 2300. Medications: see med list Follow Up Care: Specialist: f/u on 11/08/24 for scheduled IOL for GDM, A1 Discharge Statement: "Patient was advised to return to the ER or call 911 if any headaches, dizziness, shortness of breath, chest pain, abdominal pain, bleeding, fevers, or worsening of medical condition. Patient was counseled about treatment plan, medications, possible side effects, patientverbalized understanding. All questions were answered to the best of my ability. This discharge took greater then 30 minutes in planning, reviewing documentation, counseling the patient, and discussing with other team members." Visit Coding OBGYN Date of Service: Nov 02, 2024 Billing Provider: LIBAN VIEYRA CNM CARDIOVASCULAR RN Common Visit Codes: [id number] OBS CARE (HIGH) CARDIOVASCULAR RN Procedure Codes: 83222-05- NON-STRESS TEST LIBAN VIEYRA CNM Nov 02, 2024 22:32
== END 2024-11-02 09:56 | disposition home or self-care (01) ==
LOC: UNDOADMOB 08:00 → LDRP 08:00 → UNDODISOB 09:56
PROVIDERS: ADMIT Obstetrics & Gynecology; ATTEND Obstetrics & Gynecology
DX: O24.419 Gestational diabetes mellitus in pregnancy, unspecified control (principal); Z98.890 Other specified postprocedural states; Z79.899 Other long term (current) drug therapy; Z3A.38 38 weeks gestation of pregnancy
CPT/HCPCS: 76818; 81002; 82948; 82962; 94760; G0378; 76819

== ENCOUNTER 2024-11-05 09:42 | Observation (INO) | payer BC ==
[2024-11-05 11:52] LABS: Basophils # (auto) 0.1 10 ^3/uL (0-0.2); Basophils % (auto) 0.9 % (0.0-2.0); Eosinophils # (auto) 0.1 10 ^3/uL (0-0.8); Eosinophils % (auto) 0.9 % (0.0-7.0); Hematocrit 41.8 % (36.0-46.0); Hemoglobin 14.2 g/dL (12.2-16.2); Lymphocytes # (auto) 1.9 10 ^3/uL (0.4-5.4); Lymphocytes % (auto) 23.3 % (10.0-50.0); Mean Corpuscular Hemoglobin 31.3 pg (28.0-32.0); Mean Corpuscular Volume 92.1 fL (80.0-100.0); Monocytes # (auto) 0.5 10 ^3/uL (0-1.3); Monocytes % (auto) 6.1 % (0.0-12.0); Neutrophils # (auto) 5.7 10 ^3/uL (1.6-8.6); Neutrophils % (auto) 68.8 % (37.0-80.0); Nucleated Red Blood Cells % 0.1 %; Platelet Count (auto) 140 10^3/uL (140-450); Red Blood Cells 4.55 10^6/uL (4.0-5.20); Red Cell Distribution Width 14.1 % (11.8-14.3); White Blood Cell 8.3 10^3/uL (4.4-10.8)
--- NOTE | 2024-11-05 11:59 | DVH ---
BIOPHYSICAL PROFILE HISTORY: GDMA1 TECHNIQUE: Multiple transabdominal real-time grayscale sonographic images through the gravid uterus of the fetus with duplex Doppler color flow and M-mode spectral analysis FINDINGS: BIOPHYSICAL PROFILE: breathing score: 2 movement score: 2 tone score: 2 Quantitative MP score: 2 (MP: 15.8 Cm.) Total score: 8 The cervix not well visualized. Single live fetus in cephalic presentation. heart rate 130 beats per minute. Fundal/posterior placenta without previa or abruption IMPRESSION: Biophysical profile score: 8
[2024-11-05 12:04] LABS: Urine Bacteria FEW /hpf (None Seen); Urine Blood 2+ /uL (Negative); Urine Clarity Turbid (Clear); Urine Color Light-Yellow (Yellow); Urine Hyaline Cast FEW /lpf (0 - 2); Urine Protein, UAD Negative (Negative); Urine Specific Gravity 1.014 (1.001-1.035); Urine Squamous Epithelial Cell MOD /hpf (<5); Urine Urobilinogen Normal (Negative); Urine WBC 11 /HPF (0-5); Urine pH 6.5 (5.0-9.0)
[2024-11-05 12:06] LABS: INR 0.88 (0.9-1.15); Partial Thromboplastin Time 27.6 SEC (24.5-34.5); Prothrombin Time 9.4 sec (9.3-11.8)
[2024-11-05 12:08] LABS: Alanine Aminotransferase 28 U/L (7-40); Albumin 4.1 g/dL (3.2-4.8); Anion Gap 10 (5-15); Aspartate Aminotransferase 23 U/L (13-40); Bilirubin, Total 0.4 mg/dL (0.2-1.0); Blood Urea Nitrogen 12 mg/dL (9-23); Calcium 9.9 mg/dL (8.7-10.4); Glucose 85 mg/dL (74-106); Sodium 138 mmol/L (136-145); Total Protein 6.5 g/dL (5.7-8.2); Uric Acid 6.4 mg/dL (3.1-7.8)
[2024-11-05 12:09] LABS: Alkaline Phosphatase 205 U/L (46-116); Carbon Dioxide 18 mmol/L (20-31); Chloride 110 mmol/L (98-107)
[2024-11-05 12:17] LABS: Protein, Urine 17.6 mg/dL (1-14)
[2024-11-05 12:20] LABS: Amphetamine Screen, Urine Neg (NEGATIVE); Creatinine, Urine 59.42 mg/dL (30.0-125.0); Urine Protein/Creatinine Ratio 0.3
[2024-11-05 12:23] LABS: Barbiturate Scree,Urine Neg (NEGATIVE); Benzodiazephine Screen, Urine Neg (NEGATIVE); Cannabinoid Screen, Urine Neg (NEGATIVE); Cocaine Screen, Urine Neg (NEGATIVE); Opiate Scree,Urine Neg (NEGATIVE); Phencyclidine Screen, Urine Neg (NEGATIVE)
--- NOTE | 2024-11-06 07:46 | DVHDS2 ---
Physician Discharge Progress N Final Diagnosis: labor check 38wks Operations or Procedures: Operations or Procedures nst reactive reviewed ,sono 02/11 nl bpp Condition on Discharge: Good Disposition: Home Discharge Instructions: Diet: Consistent carbohydrate Activity: No Restrictions, As Tolerated Medications: na Follow Up Care: Specialist: 3d Discharge Statement: "Patient was advised to return to the ER or call 911 if any headaches, dizziness, shortness of breath, chest pain, abdominal pain, bleeding, fevers, or worsening of medical condition. Patient was counseled about treatment plan, medications, possible side effects, patientverbalized understanding. All questions were answered to the best of my ability. This discharge took greater then 30 minutes in planning, reviewing documentation, counseling the patient, and discussing with other team members." Visit Coding OBGYN Date of Service: November 05, 2024 Billing Provider: KRYSTAL ELDER DO HOOP FLARING MACHINE OPERATOR Common Visit Codes: 22605-[id number] OBS CARE (HIGH) HOOP FLARING MACHINE OPERATOR Procedure Codes: 47930-08- NON-STRESS TEST KRYSTAL ELDER DO November 06, 2024 07:46
== END 2024-11-05 13:07 | disposition home or self-care (01) ==
LOC: LDRP 09:42
PROVIDERS: ADMIT Obstetrics & Gynecology; ATTEND Obstetrics & Gynecology
DX: O62.9 Abnormality of forces of labor, unspecified (principal); R79.1 Abnormal coagulation profile; Z98.890 Other specified postprocedural states; Z79.899 Other long term (current) drug therapy; Z3A.38 38 weeks gestation of pregnancy
CPT/HCPCS: 36415; 76818; 80053; 80307; 81001; 81002; 82570; 84156; 84550; 85025; 85610; 85730; 94760; G0378; 59025; 76819

== ENCOUNTER 2024-11-08 06:02 | Inpatient (IN) | payer BC ==
[~2024-11-08] VITALS: Ht 162.6 cm; Wt 93.4 kg
[2024-11-08] MEDS ORDERED: LIDOCAINE 2%HCL (LOCAL ANESTH.) INJ 20ML MDV IJ PRN (07:15)
[2024-11-08] MEDS ORDERED: BUTORPHANOL TARTRATE 2 MG/1 ML VIAL IV PRN ×2 (07:15)
[2024-11-08 07:49] LABS: Basophils # (auto) 0.1 10 ^3/uL (0-0.2); Basophils % (auto) 1.1 % (0.0-2.0); Eosinophils # (auto) 0.1 10 ^3/uL (0-0.8); Eosinophils % (auto) 0.8 % (0.0-7.0); Hematocrit 43.6 % (36.0-46.0); Hemoglobin 14.8 g/dL (12.2-16.2); Lymphocytes # (auto) 2.3 10 ^3/uL (0.4-5.4); Lymphocytes % (auto) 24.9 % (10.0-50.0); Mean Corpuscular Hemoglobin 31.2 pg (28.0-32.0); Mean Corpuscular Hgb Conc. 33.9 g/dL (32.0-36.0); Monocytes # (auto) 0.6 10 ^3/uL (0-1.3); Monocytes % (auto) 6.7 % (0.0-12.0); Neutrophils % (auto) 66.5 % (37.0-80.0); Nucleated Red Blood Cells % 0.1 %; Platelet Count (auto) 147 10^3/uL (140-450); Red Blood Cells 4.74 10^6/uL (4.0-5.20); Red Cell Distribution Width 14.1 % (11.8-14.3); White Blood Cell 9.1 10^3/uL (4.4-10.8)
[2024-11-08 08:01] LABS: Urine Bacteria FEW /hpf (None Seen); Urine Blood 2+ /uL (Negative); Urine Clarity Clear (Clear); Urine Color Light-Yellow (Yellow); Urine Protein, UAD Negative (Negative); Urine Specific Gravity 1.005 (1.001-1.035); Urine Squamous Epithelial Cell FEW /hpf (<5); Urine Urobilinogen Normal (Negative); Urine WBC 1 /HPF (0-5); Urine pH 6.5 (5.0-9.0)
[2024-11-08 08:04] LABS: INR 0.9 (0.9-1.15); Partial Thromboplastin Time 28.6 SEC (24.5-34.5); Prothrombin Time 9.6 sec (9.3-11.8)
[2024-11-08 08:08] LABS: Alanine Aminotransferase 36 U/L (7-40); Albumin 4.1 g/dL (3.2-4.8); Anion Gap 13 (5-15); Aspartate Aminotransferase 27 U/L (13-40); Bilirubin, Total 0.5 mg/dL (0.2-1.0); Calcium 9.9 mg/dL (8.7-10.4); Glucose 82 mg/dL (74-106); Potassium 3.6 mmol/L (3.5-5.1); Sodium 138 mmol/L (136-145); Total Protein 6.6 g/dL (5.7-8.2)
[2024-11-08 08:11] LABS: Amphetamine Screen, Urine Neg (NEGATIVE); Barbiturate Scree,Urine Neg (NEGATIVE); Benzodiazephine Screen, Urine Neg (NEGATIVE); Cannabinoid Screen, Urine Neg (NEGATIVE); Cocaine Screen, Urine Neg (NEGATIVE); Opiate Scree,Urine Neg (NEGATIVE); Phencyclidine Screen, Urine Neg (NEGATIVE)
[2024-11-08 08:11] LABS: Alkaline Phosphatase 218 U/L (46-116); Blood Urea Nitrogen 9 mg/dL (9-23); Carbon Dioxide 17 mmol/L (20-31); Chloride 108 mmol/L (98-107)
[2024-11-08] MEDS ORDERED: LACT. RINGERS/OXYTOCIN 20UNITS 500 ML IV ONE ×2 (13:15→13:45)
[2024-11-08] MEDS ORDERED: TERBUTALINE SULFATE 1 MG/ML 1ML VIAL SC PRN (13:15)
[2024-11-08] MEDS: ePHEDrine SULFATE 50 MG/ML AMP IV ONE (13:30)
[2024-11-08] MEDS: NALOXONE HCL 0.4 MG/ML VIAL IV ONE (13:30)
[2024-11-08] MEDS: LIDOCAINE 1%-Mpf/Epinephrine 1:200,000 30ml VIAL ONE (14:02)
[2024-11-08] MEDS: LACT. RINGERS/OXYTOCIN 20UNITS 1,000 ML IV SCH (15:06)
[2024-11-08] MEDS: ROPIVACAINE HCL 200 ML ONE (15:08)
[2024-11-08] MEDS: LACTATED RINGER'S 1,000 ML IV SCH (15:08)
[2024-11-08] MEDS: DERMOPLAST 60ML BOTTLE TOP PRN (15:09)
[2024-11-08] MEDS: WITCH HAZEL-GLYCERIN PAD TOP PRN (15:09)
[2024-11-08] MEDS: PHISODERM TOP SOLN 240ML BTL TOP PRN (15:09)
[2024-11-08] MEDS: PENICILLIN G POT 5MIL/D5 50ML 50 ML IV ONE (17:30)
[2024-11-08] MEDS: PENICILLIN G POTASSIUM 2,500,000 UNITS in D5W 5% 50 ML IV SCH (21:30)
[2024-11-08] MEDS: ACETAMINOPHEN 325 MG TAB PO PRN (22:58)
[2024-11-08] MEDS: ceFAZolin 2 GM/D5W50ml 50 ML IV ONE (23:57)
[2024-11-09] MEDS ORDERED: METHYLERGONOVINE MALEATE 0.2 MG/ML AMP IM PRN (00:30)
[2024-11-09] MEDS: CARBOPROST TROMETHAMINE 250 MCG/1ML VIAL IM ONE (00:30)
[2024-11-09] MEDS: ONDANSETRON HCL 4 MG/2 ML VIAL IV PRN ×2 (01:44→08:18)
[2024-11-09] MEDS: LACT. RINGERS/OXYTOCIN 20UNITS 1,000 ML IV SCH (02:30)
[2024-11-09] MEDS ORDERED: LACTATED RINGER'S 1,000 ML IV SCH (02:30)
[2024-11-09] MEDS ORDERED: MORPHINE SULFATE 4 MG/ML SYR/VIAL IV PRN (02:30)
[2024-11-09] MEDS ORDERED: ONDANSETRON HCL 4 MG/2 ML VIAL IV PRN (02:30)
[2024-11-09] MEDS ORDERED: ceFAZolin 1GM/50ML 50 ML IV SCH ×2 (02:30→06:00)
--- NOTE | 2024-11-09 02:31 | DVHOP2 ---
Operative Report - 2 Report Details Date: 11/09/24 Preop Diagnosis: tachycardia, CPD cephalopelvic disproportion failure to progress Postop Diagnosis: Same, occiput posterior Surgeon: Christiano Alexander Anesthesiologist: KALEB Lawson Anesthesia: Regional Drains: Simpson INfant Boy 9lbs 14 oz Consent: The patient was informed of the risks and benefits of the procedure. These include but are not limited to complications of anesthesia, postoperative infection, incomplete relief of symptoms, recurrence of symptoms, damage to blood vessels, nerves and tendons, deep venous thrombosis, pulmonary embolism and possible need for repeat surgery in the future. Complications: none Estimated Blood Loss: 700cc Fluids: see anesthesia log Findings: vigorous cry and tone Indications for Surgery: Failure to descend 10cm CDP tachycardia Name of Procedure Performed Primary low transverse section Procedure Details Procedure Details: Patient taken operating room where the epidural was bolus she was found to have adequate anesthesia and she was placed in left lateral tilt supine position. Low Pfannenstiel incision made with scalpel carried through the rectus fascia carried laterally rectus fascia to suit dissected superior and inferiorly peritoneum identified entered with sharp dissection. Vesicouterine peritoneum was taken off lower uterine segment and low uterine transverse incision made down the current membranes ruptured with hemostat 1 hand placed lower uterine segment in found to be in occiput posterior position 1 head delivered essentially spontaneously through the hysterotomy incision nose and mouth bulb suctioned shoulders and torso delivered without difficulty infant had immediate vigorous cry and tone cord clamp delay 1 minute was performed and then infant was handed off to waiting respiratory. Umbilical blood sample obtained as was cord gases and the placenta removed from the uterus uterus cleared of all clots and debris irrigated and then closed with a layer of 0 Vicryl. Having completed the complete hemostasis EBL 700 cc. Vesicouterine peritoneum was incorporated into the final hysterotomy incision closure. Tubes ovaries uterus all appeared normal the uterus gutters cleared of all clot debris as well as anterior- posterior cul-de-sac copiously irrigated and then closed with peritoneum the running continuous of 2-0 Biosyn instrument lap sponge count correct x2 rectus fascia closed with a running continuous 0 PDS deep Camper's Santosh's fascia was approximated with 2 chromic and skin was closed with subcuticular Prolene on a Tc needle as well as benzoin and Steri-Strips placed uterus firm EBL total 700 patient condition stable guarded. Specimen: Placenta, cord gases, cord blood sampling Condition Good Disposition PACU recovery Visit Coding OBGYN Date of Service: November 09, 2024 Billing Provider: GABRIELLE ALEXANDER DO MIXER HELPER Common Visit Codes: 65097-KTU/OBS SAME DATE (HIGH) MIXER HELPER Procedure Codes: [id number] W/ CARE GABRIELLE ALEXANDER DO November 09, 2024 02:31
[2024-11-09] MEDS ORDERED: fentaNYL CITRATE 100 MCG/2 ML VL ONE (03:01)
[2024-11-09] MEDS ORDERED: HYDROmorphone HCL 2 MG/ML VL/or syr ONE (03:01)
[2024-11-09] MEDS ORDERED: PHENYLEPHRINE HCL 10 MG/ML VL ONE (03:02)
[2024-11-09] MEDS ORDERED: OXYTOCIN 10UNIT/ML 1ML VIAL ONE ×2 (03:07→03:57)
[2024-11-09] MEDS ORDERED: DexAMETHasone SOD PHOS 10MG/1ML VIAL INJ ONE (03:08)
[2024-11-09] MEDS ORDERED: ONDANSETRON HCL 4 MG/2 ML VIAL ONE (03:08)
[2024-11-09 04:21] VITALS: PULSE 109; RESP 16; O2SAT 96
[2024-11-09] MEDS ORDERED: KETOROLAC TROMETH 30 MG/ML 1ML VIAL IV PRN ×2 (04:30→16:00)
[2024-11-09] MEDS ORDERED: diphenhdrAMINE HCL 50 MG/1 ML VL IV PRN (04:30)
[2024-11-09] MEDS ORDERED: NALOXONE HCL 0.4 MG/ML VIAL IV PRN (04:30)
[2024-11-09 07:00] VITALS: BP 114/68; PULSE 103; RESP 18; TEMP 99; O2SAT 97
[2024-11-09] MEDS: LACTATED RINGER'S 1,000 ML IV SCH (07:30)
[2024-11-09] MEDS: ceFAZolin 1GM/50ML 50 ML IV SCH (08:13)
[2024-11-09] MEDS: DIPHENOXYLATE W/ATROPINE 2.5 MG TAB PO SCH (10:00)
[2024-11-09 11:00] VITALS: BP 107/63; PULSE 96; RESP 18; TEMP 97.9; O2SAT 96
[2024-11-09 15:00] VITALS: BP 99/58; PULSE 86; RESP 18; TEMP 97.8; O2SAT 96
[2024-11-09] MEDS: ACETAMINOPHEN IV 1000 MG/100ML (10MG/ML) IV PRN (15:28)
[2024-11-09 19:00] VITALS: BP 104/55; PULSE 95; RESP 17; TEMP 97.7; O2SAT 96
[2024-11-09 23:00] VITALS: BP 116/61; PULSE 91; RESP 17; TEMP 98; O2SAT 97
--- NOTE | 2024-11-10 00:04 | DVHPN2 ---
Progress Note Date Seen: November 10, 2024 Subjective S: bleeding is less, advancing diet as tolerated, denies lightheaded/dizziness, pain well controlled with IV medications, due to void after cabrera d/c'ed, no flatus/BM yet, ambulating well, vital signs Vital Sign Date Time Temp Pulse Resp B/P (MAP) Pulse Ox O2 Delivery O2 Flow Rate FiO2 11/09/24 23:00 98.0 91 17 116/61 (79) 97 98.0 11/09/24 19:00 Room Air Total Intake and Output 11/09/24 11/09/24 11/10/24 14:59 22:59 06:59 Output Total 400 ml 100 ml Balance -400 ml -100 ml medications Current Medications Medications Dose Ordered Sig/Aj Route Start Time Stop Time Status Last Admin Dose Admin Lactated Ringer's 1,000 ml @ 125 mls/hr Q8H IV 11/08/24 07:15 11/09/24 08:13 125 MLS/HR Bisi Lobato 1 pad PRN PRN TOP 11/08/24 07:15 11/08/24 17:53 1 PAD Sodium Lauryl Sulfate 240 ml PRN PRN TOP 11/08/24 07:15 11/08/24 17:53 240 ML Benzocaine 1 applic PRN PRN TOP 11/08/24 07:15 11/08/24 17:53 1 APPLIC Acetaminophen 650 mg Q4HP PRN PO 11/08/24 22:45 11/08/24 22:58 650 MG Methylergonovine Maleate 0.2 mg Q8HP PRN IM 11/09/24 00:30 11/11/24 00:29 Diphenoxylate HCl/ Atropine 10 mg Q12HR PO 11/09/24 10:00 Morphine Sulfate 2 mg Q4HP PRN IV 11/09/24 02:30 Hold Diphenhydramine HCl 25 mg Q4HP PRN IV 11/09/24 04:30 Ondansetron HCl 4 mg Q4HP PRN IV 11/09/24 04:30 11/09/24 08:18 4 MG Cefazolin Sodium 50 ml @ 100 mls/hr Q8H IV 11/09/24 08:00 11/10/24 00:29 11/09/24 16:24 100 MLS/HR Acetaminophen 1,000 mg Q8HPRN PRN IV 11/09/24 07:30 11/10/24 07:29 11/09/24 23:34 1,000 MG Ketorolac Tromethamine 30 mg Q6HPRN PRN IV 11/09/24 16:00 11/14/24 15:59 laboratory and microbiology Laboratory Tests 11/08/24 07:35 Test 11/08/24 07:35 Range/Units Serum Glucose 82 74-106 mg/dL Objective O: VSS Chest: heart sounds normal and lung sounds clear bilaterally Abd: soft, non-tender, fundus at U/firm/midline, active bowel sounds, no rebound or guarding Incision: dermabond with sutures under is open to air, clean/dry/intact, edges well approximated Ext: Non-tender, No edema, 2+ BLE DTRs Lochia: minimal See lab results Problems(with codes): (1) S/P primary low transverse (2) Precipitous drop in hematocrit Assessment/Plan A/P: 29yo now POD#1 s/p primary -Continue with routine post-op care Plan discussed with: Patient Visit Coding OBGYN Date of Service: November 10, 2024 Billing Provider: LIBAN VIEYRA CNM DRAWER FITTER Common Visit Codes: [id number] INP/OBS CARE(HIGH) LIBAN VIEYRA CNM November 10, 2024 00:04
[2024-11-10] MEDS ORDERED: METOCLOPRAMIDE HCL 5MG/ml INJ 2ml VIAL IV PRN (02:15)
[2024-11-10] MEDS ORDERED: FAMOTIDINE (10MG/ML) 2ML VL IV PRN (02:15)
[2024-11-10 03:00] VITALS: BP 110/68; PULSE 89; RESP 17; TEMP 98.5; O2SAT 96
[2024-11-10] MEDS ORDERED: IBUPROFEN 800 MG TAB PO PRN (03:45)
[2024-11-10] MEDS ORDERED: HYDROcodone-ACET 5/325MG TAB PO PRN ×2 (03:45)
[2024-11-10] MEDS: SIMETHICONE 80 MG CHEWABLE TABLET PO SCH (06:00)
[2024-11-10 06:46] LABS: Basophils # (auto) 0 10 ^3/uL (0-0.2); Basophils % (auto) 0.1 % (0.0-2.0); Eosinophils # (auto) 0.1 10 ^3/uL (0-0.8); Eosinophils % (auto) 0.6 % (0.0-7.0); Hematocrit 29.5 % (36.0-46.0); Hemoglobin 10.2 g/dL (12.2-16.2); Lymphocytes # (auto) 2.3 10 ^3/uL (0.4-5.4); Lymphocytes % (auto) 12.1 % (10.0-50.0); Mean Corpuscular Hemoglobin 31.6 pg (28.0-32.0); Mean Corpuscular Hgb Conc. 34.4 g/dL (32.0-36.0); Mean Corpuscular Volume 91.8 fL (80.0-100.0); Monocytes % (auto) 5.2 % (0.0-12.0); Neutrophils # (auto) 15.8 10 ^3/uL (1.6-8.6); Nucleated Red Blood Cells % 0.1 %; Platelet Count (auto) 127 10^3/uL (140-450); Red Blood Cells 3.22 10^6/uL (4.0-5.20); Red Cell Distribution Width 14.3 % (11.8-14.3); White Blood Cell 19.3 10^3/uL (4.4-10.8)
[2024-11-10 07:00] VITALS: BP 113/60; PULSE 97; RESP 16; TEMP 98.5; O2SAT 97
[2024-11-10] MEDS: DOCUSATE SOD 100 MG CAP PO SCH (10:46)
[2024-11-10 11:00] VITALS: BP 118/68; PULSE 80; RESP 16; TEMP 98.7; O2SAT 96
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
[2024-11-10 15:00] VITALS: BP 120/73; PULSE 105; RESP 16; TEMP 98.4; O2SAT 96
[2024-11-10] MEDS ORDERED: FER325T PO (16:18)
[2024-11-10] MEDS ORDERED: DOCU-265 PO (16:18)
[2024-11-10] MEDS ORDERED: IBUP-1455 PO (16:18)
[2024-11-10] MEDS ORDERED: HYDR-4902 PO (16:18)
[2024-11-10 19:00] VITALS: BP 114/66; PULSE 95; RESP 17; TEMP 98.5; O2SAT 97
[2024-11-10 22:35] VITALS: BP 110/72; PULSE 94; RESP 16; TEMP 98.8; O2SAT 99
--- NOTE | 2024-11-11 00:17 | DVHPN2 ---
Progress Note Date Seen: November 11, 2024 Subjective S: bleeding is less, eating food without issues, denies lightheaded/dizziness, pain well controlled with oral medications, no concerns with urinating, passing flatus, no BM yet, ambulating well, well vital signs Vital Sign Date Time Temp Pulse Resp B/P (MAP) Pulse Ox O2 Delivery O2 Flow Rate FiO2 11/10/24 22:35 98.8 94 16 110/72 (85) 99 98.8 11/10/24 19:30 Room Air Total Intake and Output 11/10/24 11/10/24 11/11/24 15:00 23:00 07:00 Output Total 900 ml Balance -900 ml medications Current Medications Medications Dose Ordered Sig/Aj Route Start Time Stop Time Status Last Admin Dose Admin Lactated Ringer's 1,000 ml @ 125 mls/hr Q8H IV 11/08/24 07:15 11/09/24 08:13 125 MLS/HR Bisi [place] 1 pad PRN PRN TOP 11/08/24 07:15 11/08/24 17:53 1 PAD Sodium Lauryl Sulfate 240 ml PRN PRN TOP 11/08/24 07:15 11/08/24 17:53 240 ML Benzocaine 1 applic PRN PRN TOP 11/08/24 07:15 11/08/24 17:53 1 APPLIC Acetaminophen 650 mg Q4HP PRN PO 11/08/24 22:45 11/10/24 23:38 650 MG Methylergonovine Maleate 0.2 mg Q8HP PRN IM 11/09/24 00:30 11/11/24 00:29 Diphenoxylate HCl/ Atropine 10 mg Q12HR PO 11/09/24 10:00 Morphine Sulfate 2 mg Q4HP PRN IV 11/09/24 02:30 Hold Diphenhydramine HCl 25 mg Q4HP PRN IV 11/09/24 04:30 Ketorolac Tromethamine 30 mg Q6HPRN PRN IV 11/09/24 16:00 11/14/24 15:59 Metoclopramide HCl 10 mg Q8HPRN PRN IV 11/10/24 02:15 Famotidine 20 mg Q12HR PRN IV 11/10/24 02:15 Docusate Sodium 100 mg Q12HR PO 11/10/24 10:00 5/7/25 23:58 100 MG Dimethicone 80 mg QID PO 11/10/24 06:00 11/10/24 23:58 80 MG Ibuprofen 800 mg Q8HP PRN PO 11/10/24 03:45 Acetaminophen/ Hydrocodone Bitart 1 tab Q4HPRN PRN PO 11/10/24 03:45 Acetaminophen/ Hydrocodone Bitart 2 tab Q4HPRN PRN PO 11/10/24 03:45 laboratory and microbiology Laboratory Tests 11/10/24 06:13 11/08/24 07:35 Test 11/08/24 07:35 Range/Units Serum Glucose 82 74-106 mg/dL Objective O: VSS Chest: heart sounds normal and lung sounds clear bilaterally Abd: soft, non-tender, fundus 1 below U/firm/midline, active bowel sounds, no rebound or guarding Incision: dermabond with sutures under is open to air, clean/dry/intact, edges well approximated Ext: Non-tender, No edema, 2+ BLE DTRs Lochia: minimal See lab results Problems(with codes): (1) S/P primary low transverse (2) Precipitous drop in hematocrit Assessment/Plan A: 29yo now POD#2 s/p primary Rh+ Rubella Immune P: D/C home today Rx sent to pharmacy precautions and preeclampsia warning signs reviewed F/U with [facility] office in 1 week Plan discussed with: Patient Visit Coding OBGYN Date of Service: November 11, 2024 Billing Provider: LIBAN VIEYRA CNM [employer] Common Visit Codes: [id number] INP/OBS CARE(HIGH) LIBAN VIEYRA CNM November 11, 2024 00:17
--- NOTE | 2024-11-11 00:27 | DVHDS2 ---
Obstetrics Discharge Summary Obstetrics Discharge Summary Date of Admission: November 08, 2024 Date of Discharge: November 11, 2024 Reason For Admission: Onset of Labor Procedures: NST, Mgmt of Obstetrics Compli Intrapartum Procedures: (Primary LTCS) Procedures: Antibiotics, Hct/date: (11/10/24), Hgb/date: (11/10/24) Operative Complicat: None Discharge Diagnosis: Term -Delivered Discharge Information: Activity (as tolerated, no heavy lifting and nothing in the vagina for 6 weeks), Diet (Routine), Medications (Rx sent), Instructions (Routine), Discharge to (Home), Accompanied by (partner), Discarge date (11/11/24) Visit Coding OBGYN Date of Service: November 11, 2024 Billing Provider: LIBAN VIEYRA CNM [employer]IM[employer] SCIENTIST Common Visit Codes: [id number] DISCH DAY <30MIN LIBAN VIEYRA CNM November 11, 2024 00:27
[2024-11-11 03:15] VITALS: BP 104/56; PULSE 95; TEMP 98.1; O2SAT 99
[2024-11-11] MEDS: TETANUS-DIPTH-ACEL PERTUSSIS 0.5ML SYR Tdap IM ONE (05:27)
[2024-11-11 07:17] VITALS: BP 112/71; PULSE 88; TEMP 98.2; O2SAT 99
[2024-11-11 07:18] VITALS: PULSE 88; RESP 16
== END 2024-11-11 10:10 | disposition home or self-care (01) | DRG 788 ==
LOC: LDRP 06:02 → EDUNIT# 07:07 → OBSVTOIN 07:07
PROVIDERS: ADMIT Obstetrics & Gynecology; ATTEND Obstetrics & Gynecology
PROC: 10D00Z1 Extraction of Products of Conception, Low, Open Approach (ICD-10-PCS; principal; 2024-11-09 03:16)
DX: O76 Abnormality in fetal heart rate and rhythm complicating labor and delivery (principal); Z37.0 Single live birth; F43.10 Post-traumatic stress disorder, unspecified; F43.22 Adjustment disorder with anxiety; O99.344 Other mental disorders complicating childbirth; O33.9 Maternal care for disproportion, unspecified; O62.2 Other uterine inertia; Z3A.39 39 weeks gestation of pregnancy
CPT/HCPCS: 36415; 59025; 62282; 80053; 80307; 81001; 81002; 82948; 82962; 85025; 85610; 85730; 86703; 86803; 86850; 86900; 86901; 94760; 96360; 96361; 96365; 96366; 96374; G0378; J0131; J1100; J2405; J2540; J2590; J7060

== ENCOUNTER 2024-12-24 13:22 | Outpatient (CLI) | payer BC ==
[~2024-12-24 13:22] MED LIST changes: +DOCU-265 PO; +FER325T PO; +IBUP-1455 PO; -SEMA7TAB2 PO; -ZOFR4T PO
== END 2024-12-24 17:00 | disposition home or self-care (01) ==
LOC: LAB 13:22
PROVIDERS: ATTEND Nurse Practitioner Women's Health
DX: Z39.2 Encounter for routine postpartum follow-up (principal); Z79.899 Other long term (current) drug therapy
CPT/HCPCS: 36415; 82306; 83036; 84439; 84443

== ENCOUNTER 2025-01-18 12:35 | Outpatient (CLI) | payer BC ==
[2025-01-18 13:01] LABS: Hematocrit 44.0 % (36.0-46.0); Hemoglobin 14.8 g/dL (12.2-16.2); Mean Corpuscular Hemoglobin 29.4 pg (28.0-32.0); Mean Corpuscular Volume 87.8 fL (80.0-100.0); Nucleated Red Blood Cells % 0.1 %
[2025-01-18 13:35] LABS: Potassium 4.0 mmol/L (3.5-5.1)
[2025-01-18 13:41] LABS: Magnesium 1.9 mg/dL (1.6-2.6)
[2025-01-18 13:45] LABS: Free T3 2.75 pg/mL (2.3-4.2)
[2025-01-18 15:11] LABS: Free T4 (Free Thyroxine) 1.09 ng/dL (0.89-1.76)
[2025-01-19 13:07] LABS: Anti-Nuclear Antibody Direct Negative (Negative); Anti-dsDNA Antibody 1 IU/mL (0-9); Antiscleroderma-70 Antibody <0.2 AI (0.0-0.9); Sjogren's Anti-SS-A Antibody <0.2 AI (0.0-0.9); Sjogren's Anti-SS-B Antibody <0.2 AI (0.0-0.9)
== END 2025-01-18 17:00 | disposition home or self-care (01) ==
LOC: LAB 12:35
PROVIDERS: ATTEND Internal Medicine
DX: E28.2 Polycystic ovarian syndrome (principal); R00.2 Palpitations; Z01.419 Encounter for gynecological examination (general) (routine) without abnormal findings
CPT/HCPCS: 36415; 82607; 82746; 83525; 83735; 84132; 84436; 84439; 84443; 84480; 84481; 85025; 85379; 85652; 86141; 86160; 86225; 86235; 86376; 86431; 86800

== ENCOUNTER 2025-03-14 09:44 | Outpatient (CLI) | payer BC | END 2025-03-14 17:00 | disposition home or self-care (01) | LOC: LAB 09:44 | PROVIDERS: ATTEND Internal Medicine | DX: E05.90 Thyrotoxicosis, unspecified without thyrotoxic crisis or storm (principal); R42 Dizziness and giddiness | CPT/HCPCS: 36415; 82306; 84443 ==

== ENCOUNTER → 2025-04-29 | Outpatient (CLI) | payer BC ==
[2025-04-29 09:45] LABS: Triglycerides 51 mg/dL (< 150)
[2025-04-29 09:46] LABS: Cholesterol 156 mg/dL (< 200)
[2025-04-29 10:30] LABS: HDL Cholesterol 63 mg/dL (40-59)
== END | disposition home or self-care (01) ==
LOC: LAB 08:54
PROVIDERS: ATTEND Internal Medicine
DX: E05.90 Thyrotoxicosis, unspecified without thyrotoxic crisis or storm (principal); E55.9 Vitamin D deficiency, unspecified; R00.2 Palpitations
CPT/HCPCS: 36415; 80061; 82306; 84443